=== PATIENT | female | born 1940 | race Caucasian/White ===

== ENCOUNTER 2017-01-15 13:25 | Emergency (ER) | payer MEDICARE ==
[~2017-01-15] VITALS: Ht 162.6 cm; Wt 65.0 kg
[~2017-01-15 13:25] MED LIST: ACCU-CHEK FASTCLIX L XX; ACCU-CHEK SMARTVIEW VI; ATENOLOL50 MG; ATENOLOL50 MG PO; CARAFATE1 G1 OR; COREG12.5 MG PO; DICLOFENAC100 M1 PO; DILTIAZEM120 M2 OR; DURAGESIC25 MCG/PAT TD; EQL ASPIRIN81 MG PO; ERYTHROMYCIN O3.5 GM; FISH OIL1000 MG PO; FLEXERIL OR; GABAPENTIN100 MG PO; GABAPENTIN300 MG OR; GLIME4T; GLIME4T PO; GLIMEPIRIDE2 MG OR; GLIMEPIRIDE4 MG PO; HYDROCHLOROT12.5 MG PO; HYDROCO/APAP1 T10 PO; LANTUS SOLOSTAR SC; LANTUS100 MG/ML; LANTUS100 MG/ML SC; LEVEMIR FL100 UNIT/M SC; LEVEMIR FLEXPEN SC; LISINOP/HCTZ1 TA1 OR; LISINOP/HCTZ1 TAB PO; LISINOPRIL10 MG PO; LOPID600 MG PO; LORTAB 10; LORTAB 10-325 M1 TAB PO; LORTAB 7.57.5 MG PO; MEDDOSEPAK PO; METFORMIN1000 MG; METFORMIN1000 MG PO; MOTRIN800 MG/TAB PO; MUCINEX600 MG PO; MULTI VIT PO; NEXIUM40 M1 OR; OCUVITE PO; PAROXETINE20 MG; PAROXETINE20 MG PO; PERSANTINE25 MG OR; PRILOSEC20 MG PO; PRILOSEC40 MG PO; SIMVASTATIN20 MG PO; TEMAZEPAM15 MG OR; TRICOR145 MG PO; ULTRAM50 MG PO; XANAX0.25 MG OR; ZITHROMAX250 MG PO; [UNRECOGNIZED DRUG - OTHER] XX; [UNRECOGNIZED DRUG - OTHER] XX; [UNRECOGNIZED DRUG - SUPPLY] VI
[2017-01-15] MEDS ORDERED: BACTRIM DS1 TAB PO (14:27)
[2017-01-15] MEDS ORDERED: CEPHALEXIN500 MG PO (14:27)
[2017-01-15 14:35] VITALS: BP 139/74
[2017-01-15] MEDS ORDERED: MELOXICAM15 MG PO (14:42)
[2017-01-15] MEDS ORDERED: TOUJEO SOL300 UNIT/M SC (14:43)
[2017-01-15] MEDS ORDERED: NEURONTIN300 MG PO (14:44)
[2017-01-15] MEDS ORDERED: CARVEDILOL3.125 MG PO (14:45)
[2017-01-15] MEDS ORDERED: ADLT ASA LOW81 MG PO (14:46)
== END 2017-01-15 14:35 | disposition home or self-care (01) ==
LOC: ED 13:25
DX: M79.672 Pain in left foot (principal)

== ENCOUNTER 2017-03-23 15:35 | Emergency (ER) | payer MEDICARE ==
[~2017-03-23] VITALS: Ht 162.6 cm; Wt 65.0 kg
[~2017-03-23 15:35] MED LIST changes: +ADLT ASA LOW81 MG PO; +BACTRIM DS1 TAB PO; +CARVEDILOL3.125 MG PO; +CEPHALEXIN500 MG PO; +MELOXICAM15 MG PO; +NEURONTIN300 MG PO; +TOUJEO SOL300 UNIT/M SC
[2017-03-23 18:33] VITALS: BP 119/65
== END 2017-03-23 18:33 | disposition home or self-care (01) ==
LOC: ED 15:35
PROC: 2W3RX1Z Immobilization of Left Lower Leg using Splint (ICD-10-PCS; principal; 2017-03-23)
DX: S86.011A Strain of right Achilles tendon, initial encounter (principal); M79.605 Pain in left leg; R22.32 Localized swelling, mass and lump, left upper limb

== ENCOUNTER 2017-04-07 11:29 | Day surgery (SDC) | payer MEDICARE ==
[~2017-04-07] VITALS: Ht 162.6 cm; Wt 66.2 kg
[~2017-04-07 11:29] MED LIST changes: +ATORVASTATIN CA40 MG PO; +VITAMIN C + PO
[2017-04-07] MEDS ORDERED: PERCOCET 10/31 COMBO PO (15:51)
[2017-04-07] MEDS ORDERED: KEFLEX500 MG PO (15:51)
[2017-04-07] MEDS ORDERED: ELIQUIS2.5 MG PO (15:51)
[2017-04-07 16:18] VITALS: BP 155/70
== END 2017-04-07 16:50 | disposition home or self-care (01) ==
LOC: ORM 11:29
PROVIDERS: ATTEND Podiatrist Foot & Ankle Surgery
PROC: 0LUP07Z Supplement Left Lower Leg Tendon with Autologous Tissue Substitute, Open Approach (ICD-10-PCS; principal; 2017-04-07)
PROC: 0L8P0ZZ Division of Left Lower Leg Tendon, Open Approach (ICD-10-PCS; 2017-04-07)
PROC: 0QBM0ZZ Excision of Left Tarsal, Open Approach (ICD-10-PCS; 2017-04-07)
DX: M66.372 Spontaneous rupture of flexor tendons, left ankle and foot (principal); M89.9 Disorder of bone, unspecified; M21.6X2 Other acquired deformities of left foot; E11.9 Type 2 diabetes mellitus without complications; I10 Essential (primary) hypertension; I48.91 Unspecified atrial fibrillation; F17.210 Nicotine dependence, cigarettes, uncomplicated
CPT/HCPCS: J2710

== ENCOUNTER 2018-09-14 06:41 | Day surgery (SDC) | payer MEDICARE ==
[~2018-09-14 06:41] MED LIST changes: +AMLODIPINE5 MG PO; +ELIQUIS2.5 MG PO; +FERR SULFATE325 MG PO; +GLIPIZIDE5 MG PO; +KEFLEX500 MG PO; +PERCOCET 10/31 COMBO PO; +VISION FORMULA1 TAB
[2018-09-14 09:50] VITALS: BP 137/71
== END 2018-09-14 10:20 | disposition home or self-care (01) ==
LOC: ENDO 06:41 → ORM 09:15 → ENDO 09:15
PROVIDERS: ATTEND Internal Medicine Gastroenterology
PROC: 0DBH8ZX Excision of Cecum, Via Natural or Artificial Opening Endoscopic, Diagnostic (ICD-10-PCS; principal; 2018-09-14)
PROC: 0DB78ZX Excision of Stomach, Pylorus, Via Natural or Artificial Opening Endoscopic, Diagnostic (ICD-10-PCS; 2018-09-14)
DX: D12.0 Benign neoplasm of cecum (principal); K57.30 Diverticulosis of large intestine without perforation or abscess without bleeding; K64.4 Residual hemorrhoidal skin tags; K21.9 Gastro-esophageal reflux disease without esophagitis; K31.9 Disease of stomach and duodenum, unspecified; K29.50 Unspecified chronic gastritis without bleeding; K44.9 Diaphragmatic hernia without obstruction or gangrene; I10 Essential (primary) hypertension; E11.9 Type 2 diabetes mellitus without complications; Z79.899 Other long term (current) drug therapy; Z79.84 Long term (current) use of oral hypoglycemic drugs

== ENCOUNTER 2018-09-23 15:07 | Observation (INO) | payer MEDICARE ==
[~2018-09-23] VITALS: Ht 157.5 cm; Wt 62.8 kg
--- NOTE | 2018-09-23 15:16 | NUR ---
PATIENT TO ROOM VIA EMS AND PHYSICIAN AT BEDSIDE FOR EVAL
--- NOTE | 2018-09-23 15:42 | NUR ---
PT STATES THAT SHE BECAME REAL WEAK DURING THE NIGHT, BECAME INCONTINENT OF URINE OF BEING UNABLE TO GET OUT OF BED TO THE BATH. PT IS AOX4. HAS FULL MOVEMENT OF ALL EXTREMITIES, DENIES ANY C/P, SOB N/V.
[2018-09-23 15:45] LABS: HEMATOCRIT 31.3 % (37.0-47.0); IMMATURE GRANULOCYTES 0.6 % (0.0-5.0); MEAN CELL VOLUME 84.6 fL CALC (80.0-100.0); MEAN CORPUSCULAR HGB CONC 31.9 g/L CALC (32.0-36.0); PLATELET COUNT 185 thou/uL (130-400); RED CELL DISTRI WIDTH 15.3 % (11.5-15.5)
[2018-09-23 16:01] LABS: ALKALINE PHOSPHATASE 75 u/l (38-126); ANION GAP 16 (6-22 (CALC)); BILIRUBIN, TOTAL 0.6 mg/dL (0.0-1.4); BUN 20 mg/dL (8-23); BUN/CREATININE RATIO 15 (12-20 (CALC)); CARBON DIOXIDE 24 mmol/l (22-30); CHLORIDE 104 mmol/l (95-108); CREATININE 1.4 mg/dL (0.5-1.0); GFR 37 ML/MIN (>=60 (CALC)); GFR FOR AFR.AMER. 44 ML/MIN (>=60 (CALC)); POTASSIUM 4.3 mmol/l (3.5-5.1); SGOT/AST 31 u/l (9-36); SODIUM 141 mmol/l (137-146); TOTAL PROTEIN 6.7 g/dL (6.3-8.2)
[2018-09-23 16:03] LABS: ALBUMIN 3.7 g/dL (3.2-5.0)
[2018-09-23 16:10] LABS: MANUAL DIFFERENTIAL YES
[2018-09-23 16:11] LABS: BAND 15 % (0-8)
--- NOTE | 2018-09-23 16:40 | NUR ---
PT RESTING ON STRETCHER, IV PATENT
[2018-09-23 16:42] LABS: URINE BILIRUBIN - DIPSTICK NEGATIVE (NEGATIVE); URINE BLOOD DIPSTICK MODERATE (NEGATIVE); URINE COLOR YELLOW; URINE GLUCOSE - DIPSTICK NEGATIVE (NEGATIVE); URINE KETONE NEGATIVE (NEGATIVE); URINE PROTEIN - DIPSTICK >=300 mg/dL (NEG-TRACE); URINE SPECIFIC GRAVITY 1.025; URINE UROBILINOGEN - DIPSTICK 0.2 E.U./dL (0.2)
[2018-09-23 16:52] LABS: URINE LEUK ESTERASE SMALL (NEGATIVE); URINE NITRITE - DIPSTICK POSITIVE (Negative)
[2018-09-23 17:02] LABS: URINE BACTERIA MANY hpf; URINE RBC TNTC RBC/hpf (0-5); URINE SQUAMOUS EPITHELIAL CELL FEW EPI/hpf (0-FEW); URINE WBC 20-50 WBC/hpf (0-5)
--- NOTE | 2018-09-23 17:40 | NUR ---
PT ASLEEP ON STRETCHER, VITALS BEING MONITORED.
--- NOTE | 2018-09-23 18:15 | NUR ---
PT WHEEZING AFTER GETTING UP AND BACK TO BED FROM BEDSIDE COMMODE- MD NOTIFIED.
--- NOTE | 2018-09-23 18:25 | NUR ---
RT AT BEDSIDE WITH JESSICA
--- NOTE | 2018-09-23 18:29 | NUR ---
ALISSA CHAVARRIA CALLED FOR REPORT
--- NOTE | 2018-09-23 18:30 | NUR ---
BREATHING TREATMENT GIVEN WITH DUONEB. BREATHING TECH. FOR GOOD DEPOSITON TO THE LUNGS.
--- NOTE | 2018-09-23 18:33 | NUR ---
Admission Note Report Given to: ALISSA CHAVARRIA Transported by: Wheelchair X Stretcher Transported with: X Nurse Transporter X Patent IV O2 X Street Commissioner TRANSPORTED TO [facility] WITHOUT INCIDENT
[2018-09-23 18:45] VITALS: BP 195/93
--- NOTE | 2018-09-23 18:45 | NUR ---
PATIENT ARRIVED TO FLOOR TRANSPORTED VIA BED, PATIENT ORIENTED TO ROOM AND CALL LIGHT SYSTEM, ASSISTED BACK IN BED, CALL LIGHT AT REACH
--- NOTE | 2018-09-23 20:23 | NUR ---
CALLED DR. GÓMEZ IMFORMED ABOUT ALLERGY TO ASPIRIN AND NOTIFIED ABOUT PATIENT VOMITTING 2X, WITH ORDERS MADE.
[2018-09-23 22:38] VITALS: BP 111/77
--- NOTE | 2018-09-24 | NUR ---
PATIENT APPEARS TO BE SLEEPING WITH EYES CLOSED, EVEN UNLABORED BREATHING, CALL LIGHT AT REACH, BED ALARM IN PLACE.
[2018-09-24 03:30] VITALS: BP 151/87
[2018-09-24 04:53] LABS: HEMATOCRIT 32.5 % (37.0-47.0); HEMOGLOBIN 10.1 g/dl (12.0-16.0); IMMATURE GRANULOCYTES 0.4 % (0.0-5.0); MEAN CELL VOLUME 86.9 fL CALC (80.0-100.0); MEAN CORPUSCULAR HGB CONC 31.1 g/L CALC (32.0-36.0); NEUT# 7.04 thou/uL (2.00-7.15); RED BLOOD COUNT 3.74 mill/uL (4.20-5.60); RED CELL DISTRI WIDTH 15.4 % (11.5-15.5)
--- NOTE | 2018-09-24 05:03 | NUR ---
PATIENT STARTED TO HAVE AUDIBLE WHEEZING, BREATHING TREATMENT GIVEN BY RT.
[2018-09-24 05:16] LABS: ALBUMIN 3.3 g/dL (3.2-5.0); BILIRUBIN, TOTAL 0.5 mg/dL (0.0-1.4); CREATININE 1.3 mg/dL (0.5-1.0); POTASSIUM 4.3 mmol/l (3.5-5.1); TOTAL PROTEIN 5.9 g/dL (6.3-8.2)
[2018-09-24 05:17] LABS: CHOLESTEROL HDL RATIO 3.7 (<4.4 (CALC))
--- NOTE | 2018-09-24 05:40 | NUR ---
CALLED DR. GÓMEZ INFORMED ABOUT PATIENT STARTED HAVING WHEEZING AGAIN AND THAT DUONEB WAS GIVEN ONE TIME DOSE AT 0430, WITH ORDERS MADE TO GIVE ANOTHER ONE TIME DOSE OF DUONEB.
[2018-09-24 05:47] VITALS: BP 138/74
--- NOTE | 2018-09-24 07:10 | NUR ---
RECEIVED PT RESTING IN SUPINE POSITION WITH EYES CLOSED. RESP EASY.
--- NOTE | 2018-09-24 07:30 | NUR ---
PT AWAKEN FOR SHIFT ASSESSMENT. PT ALERT AND ORIENTED X3. SEE SHIFT REVIEW FOR COMPLETE ASSESSMENT. PT SL LABORED BREATHING, SAT;S 97% ON ROOM AIR. LEFT LOWER BASE WITH CRACKLES AND RIGHT WITH FAINT EXP WHEEZES. PT DENIES ANY HX OF PAST LUNG DISEASE, REPORTS PAST HX OF SMOKING. PT DENIES ANY DISTRESS. TEMP 101.2, TYLENOL GIVEN ORDERED. WILL CONTINUE TO MONITOR.
--- NOTE | 2018-09-24 07:51 | NUR ---
Preliminary blood cultures, showing 3/4 bottles of gram negative rods, called to Dr Ardon. Dr Ardon, concerned about patient, was expecting a possible positive culture. Pt currently has coverage with Rocephin 1g q24h. Awaiting culture and sensitivity to evaluate antibiotic coverage.
[2018-09-24 08:00] VITALS: BP 155/81
--- NOTE | 2018-09-24 08:12 | NUR ---
DR GÓMEZ AT BEDSIDE. PT QUESTIONING DISCHARGE, STATES SHE NEEDS TO GET HOME TO HER DOG. EXPLAINED PT NEEDS TO BE HERE SHE HAS + BLOOD CULTURES AND FEVERS. PT VOICES UNDERSTANDING. PT ALSO STATES SHE HAD A COLONOSCOPY 1 WEEK AGO AND WAS TOLD SHE HAD A "7 CM MASS", DR GÓMEZ TO FOLLOW UP ON.
--- NOTE | 2018-09-24 10:00 | NUR ---
PT SITTING ON COUCH AT BEDSIDE. AM MEDS GIVEN AND TOLERATED WELL. PT DENIES ANY NEEDS. TEMP DOWN TO 99.3.
--- NOTE | 2018-09-24 11:53 | NUR ---
PT INCONTINENT OF LARGE AMOUNT OF STOOL. REPORTS IS DIARRHEA. MANAGER TEST AT BEDSIDE FOR PERICARE AND LINEN CHANGE.
[2018-09-24 15:45] VITALS: BP 151/94
--- NOTE | 2018-09-24 16:00 | NUR ---
PT WITH ANOTHER EPISODE OF LOOSE STOOLS. PERICARE PROVIDED. TEMP GREATER THAN 102. WILL MEDICATE.
--- NOTE | 2018-09-24 16:57 | NUR ---
PTS TEMP RECHECK STILL 102.0. PT WITH NO COVERS. DENIES ANY COMPLAINTS. NEW IV STARTED X1 ATTEMPT.
--- NOTE | 2018-09-24 18:07 | NUR ---
PTS TEMP DOWN TO 100.0. IV SITE PATENT. DENIES ANY NEEDS.
--- NOTE | 2018-09-24 19:00 | NUR ---
RECEIVED REPORT FROM NURSE RAFA PATIENT RESTING IN BED, DENIES PAIN OR DISCOMFORTS AT THIS TIME, WITH EVEN UNLABORED BREATHING CALL LIGHT AT REACH.
--- NOTE | 2018-09-24 20:00 | NUR ---
PATIENT AWAKE CURRENTLY WATCHING TV, DENIES PAIN OR DISCOMFORT WITH SALINE LOCK ON LEFT HAND PATENT FLUSHES WELL,LBM 09/24, SKIN IS WARM AND DRY, WASH CLOTH PROVIDED, WILL CONTINUE TO MONITOR TEMP.
[2018-09-24 20:02] VITALS: BP 122/71
--- NOTE | 2018-09-25 01:00 | NUR ---
PATIENT APPEARS TO BE SLEEPING WITH EYES CLOSED EVEN UNLABORED BREATHING, AFEBRILE AT THIS TIME, CALL LIGHT AT REACH.
[2018-09-25 04:49] VITALS: BP 130/79
--- NOTE | 2018-09-25 05:13 | NUR ---
PATIENT RESTING IN BED EYES CLOSED WITH EVEN UNLABORED BREATHING CALL LIGHT AT REACH.
[2018-09-25 05:29] LABS: HEMOGLOBIN 8.9 g/dl (12.0-16.0); IMMATURE GRANULOCYTES 0.5 % (0.0-5.0); MEAN CELL VOLUME 86.2 fL CALC (80.0-100.0); MEAN CORPUSCULAR HGB 27.4 pG CALC (26.0-32.0); MEAN CORPUSCULAR HGB CONC 31.8 g/L CALC (32.0-36.0); PLATELET COUNT 136 thou/uL (130-400); RED BLOOD COUNT 3.25 mill/uL (4.20-5.60); RED CELL DISTRI WIDTH 15.1 % (11.5-15.5)
[2018-09-25 05:52] LABS: ALBUMIN 2.8 g/dL (3.2-5.0); BILIRUBIN, TOTAL 0.3 mg/dL (0.0-1.4); CHOLESTEROL HDL RATIO 6.6 (<4.4 (CALC)); CREATININE 1.6 mg/dL (0.5-1.0); POTASSIUM 4.3 mmol/l (3.5-5.1); TOTAL PROTEIN 5.3 g/dL (6.3-8.2)
[2018-09-25 06:56] LABS: BAND 15 % (0-8); MANUAL DIFFERENTIAL YES
--- NOTE | 2018-09-25 07:00 | NUR ---
RECEIVED BEDSIDE REPORT FROM [facility]. PT RESTING ON RIGHT SIDE WITH EYES CLOSED. RESP EASY.
[2018-09-25 08:00] VITALS: BP 144/75
--- NOTE | 2018-09-25 08:15 | NUR ---
ASSESSMENT COMPLETE. PT STATES SHE FEELS BETTER, REQUESTING TO GO HOME THIS AM, STATES SHE WANTS TO GO BE WITH HER DOG. DENIES ANY OTHER NEEDS. SEE SHIFT REVIEW FOR COMPLETE ASSESSMENT.
--- NOTE | 2018-09-25 08:45 | NUR ---
DR GÓMEZ IN TO SEE PT. DISCUSSED PICC LINE PLACEMENT.
--- NOTE | 2018-09-25 09:30 | NUR ---
PT AMBULATING HALLS WITH PHYSICAL THERAPY.
--- NOTE | 2018-09-25 10:15 | NUR ---
PT TO XRAY DEPT FOR PICC LINE PLACEMENT.
--- NOTE | 2018-09-25 11:06 | NUR ---
PT RETURNED FROM XRAY. PT TOLERATED WELL. DENIES PAIN. TEMP 98.7.
[2018-09-25] MEDS ORDERED: ROCEPHIN1 G1 IV (13:29)
--- NOTE | 2018-09-25 14:31 | NUR ---
DISCHARGE INSTUCTIONS DISCUSSED WITH PATIENT AND FRIEND AT BEDSIDE. PT DENIES ANY QUESTIONS REGARDING FOLLOW UP WITH DR GÓMEZ IN ONE WEEK AND DAILY IVT AT 1030.
--- NOTE | 2018-09-25 14:37 | NUR ---
PT LEFT VIA WHEELCHAIR WITH ALL BELONGINGS.
== END 2018-09-25 14:35 | disposition home or self-care (01) ==
LOC: ED 15:07 → ED-I 16:16 → ED 17:14 → MS2 17:15
PROVIDERS: Emergency Medicine; ADMIT Internal Medicine Geriatric Medicine; ATTEND Internal Medicine Geriatric Medicine
PROC: 02HV33Z Insertion of Infusion Device into Superior Vena Cava, Percutaneous Approach (ICD-10-PCS; principal; 2018-09-25)
PROC: B518ZZA Fluoroscopy of Superior Vena Cava, Guidance (ICD-10-PCS; 2018-09-25)
DX: A41.9 Sepsis, unspecified organism (principal); N39.0 Urinary tract infection, site not specified; E87.2 Acidosis; I10 Essential (primary) hypertension; I25.10 Atherosclerotic heart disease of native coronary artery without angina pectoris; E11.69 Type 2 diabetes mellitus with other specified complication; E78.5 Hyperlipidemia, unspecified; E11.42 Type 2 diabetes mellitus with diabetic polyneuropathy; K21.9 Gastro-esophageal reflux disease without esophagitis; K27.9 Peptic ulcer, site unspecified, unspecified as acute or chronic, without hemorrhage or perforation; F41.9 Anxiety disorder, unspecified; M19.90 Unspecified osteoarthritis, unspecified site; B96.1 Klebsiella pneumoniae [K. pneumoniae] as the cause of diseases classified elsewhere; Z79.84 Long term (current) use of oral hypoglycemic drugs
CPT/HCPCS: J0131

== ENCOUNTER 2018-11-14 11:21 | Inpatient (IN) | payer MEDICARE ==
[~2018-11-14] VITALS: Ht 157.5 cm; Wt 62.6 kg
[~2018-11-14 11:21] MED LIST changes: +FERROUS SULF325 M2 PO; +ROCEPHIN1 G1 IV
[2018-11-20] VITALS (9 sets, daily range): BP systolic 122–139; BP diastolic 54–82
--- NOTE | 2018-11-20 15:02 | NUR ---
ASSESSMENT DONE . PT IS A&O X2 BUT DROWSY. PT STATED PAIN IN ABD 08/13. MEDICATED PT WITH DILAUDID SEE EMAR. INCISION ABD HAS DERMADOND AND CDI. IVF INFUSING WELL. ICE CHIPS PROVIDED. SCD IN PLACE. SAFETY PRECAUTIONS REINFORCED AND CALL LIGHT IN REACH.
--- NOTE | 2018-11-20 19:48 | NUR ---
ASSESSMENT COMPLETED. IV SITE PATENT AND ORDERED IVF INFUSING. ICE CHIPS PROVIDED. DENIES NEEDS AT THIS TIME. MIDLINE INCISION WITH DERMABOND INTACT AND SMALL PUNCTURE SITESX2 NOTED TO ABOVE UMBILICUS AND LLQ; ENCOURAGED TO USE INCENTUVE SPIROMETER AND SCD'S ARE IN PLACE TO BLE. INSTRUCTED TO CALL FOR ANY NEEDS. CALL LIGHT IS IN REACH. WILL CONTINUE TO MONITOR.
--- NOTE | 2018-11-20 21:00 | NUR ---
PT. C/O ABDOMINAL PAIN 8/ AND NAUSEA, MEDICATED WITH ORDERED DILAUDID AND ZOFRAN. PT. ASSISTED OOB TO AMBULATE TO BATHROOM , GAIT WAS UNSTEADY. PT. VOIDED 100MLS OF CLEAR YELLOW URINE. PT. WASHED HER FACE AND ORAL CARE PROVIDED. PT. VOMITED 25MLS WHEN BACK TO BED INTO EMESIS BAG. INCENTIVE SPIROMETER AT BEDSIDE ENCOURAGED TO USE.
--- NOTE | 2018-11-20 23:10 | NUR ---
PT. RESTING IN BED ON LEFT SIDE WITH EYES CLOSED; RESP. EVEN AND UNLABORED. CALL LIGHT IS IN REACH.
--- NOTE | 2018-11-21 00:43 | NUR ---
RESTING IN BED ON LEFT SIDE WITH EYES CLOSED. RESP. EVEN AND UNLABORED.
--- NOTE | 2018-11-21 02:02 | NUR ---
RESTING IN BED WITH EYES CLOSED; RESP. EVEN AND UNLABORED; CALL LIGHT IS IN REACH. WILL CONTINUE TO MONITOR.
[2018-11-21 03:52] VITALS: BP 136/86
--- NOTE | 2018-11-21 04:18 | NUR ---
PT. C/O ABD PAIN 12/13 AND MEDICATED WITH ORDERED DILAUDID AND ZOFRAN; WILL REASSESS. FRESH ICE CHIPS PROVIDED. MIDLINE INCISION REMAINS INTACT WITH DERMABOND AND SLIGHT PINKNESS NOTED TO OUTER AREA; NO DRAINAGE NOTED; WILL CONTINUE TO MONITOR. VOICES NO CONCERNS. CALL LIGHT IS IN REACH. WILL CONTINUE TO MONITOR.
[2018-11-21 07:39] VITALS: BP 133/85
--- NOTE | 2018-11-21 07:41 | NUR ---
PT IS SITTING IN THE SIDE OF THE BED. ASSESSMENT DONE. PT IS A&O X3. SCD IN PLACE. I/S ENCOURAGE PT VERBALIZED UNDERSTANDING. PT STATED PAIN IN ABD 11/13 MEDICATED PT WITH DILAUDID SEE EMAR. IVF INFUSING WELL. ICE CHIPS PROVIDED. ABD INCISION CDI. CALL LIGHT IN REACH.
--- NOTE | 2018-11-21 08:34 | NUR ---
DR. GARIBAY AT BEDSIDE DISUCSS POC.
[2018-11-21 11:24] VITALS: BP 116/66
--- NOTE | 2018-11-21 11:38 | NUR ---
PT IS VISITING IN ROOM WITH FRIEND. PT STATED PAIN IN ABD. MEDICATED PT WITH DILAIDID SEE EMAR. PT DENIES ANY OTHER NEEDS AT THIS TIME. CALL LIGHT IN REACH.
--- NOTE | 2018-11-21 15:00 | NUR ---
AMBULATED WITH PT BUT SHE WAS UNSTEADY. GAVE PT A WALKER AND SHE AMBULATED IN THE HALLWAY WITH A SLOW AND STEADY. THEN WENT BACK TO ROOM TO SIT IN RECLINER. ICE CHIPS PROVIDED. CALL LIGHT IN REACH.
[2018-11-21 16:05] VITALS: BP 129/72
[2018-11-21 19:50] VITALS: BP 146/82
--- NOTE | 2018-11-21 20:20 | NUR ---
PT HEARD YELLING OUT FOR ASSISTANCE, WHEN NURSE ENTERED ROOM PT WAS FOUND SITTING UPRIGHT ON THE FLOOR BETWEEN THE BED AND RESTROOM. PT DENIES ANY PAIN, DENIED HITTING HEAD OR FEELING ANY DISCOMFORT FROM FALL. PT ASSISTED BACK TO THE BED AND CLEANED OF INCONTINENT URINE. PT ASSESSED, NEURO'S APPEAR INTACT, PT APPEARS SLIGHTLY CONFUSED, BUT ANSWERED APPROPRIATELY TO CIRCUMSTANCES AND SELF. V/S ASSESSED STABLE. WILL NOTIFY PHYSICIAN FOR ORDERS.
--- NOTE | 2018-11-21 20:45 | NUR ---
ATTEMPTS TO CONTACT PHYSICIAN WERE MADE, WILL AWAIT ORDERS. PT APPEARS STABLE AT THIS TIME. NEURO'S INTACT, INCISION TO ABD CDI, PT DENIES ANY PAIN OTHER THAN MILD PAIN TO LOWER ABD. WILL CONTINUE TO MONITOR.
--- NOTE | 2018-11-21 21:38 | NUR ---
PT MEDICATED ORDERS PROVIDE. PT LOCX4, ASKING QUESTIONS AND ANSWERING APPROPRIATELY. PT REPORTS MINIMAL PAIN IN LOWER ABD, NO PAIN IN ANY OTHER AREAS OF THE BODY AT THIS TIME. NEURO'S INTACT AT THIS TIME. WILL CONTINUE TO MONITOR CLOSELY. BED ALARM ON AND PT REMINDED OF CALL LIGHT AND NOT TO GET UP WITHOUT ASSISTANCE.
[2018-11-22 00:24] VITALS: BP 135/74
--- NOTE | 2018-11-22 00:26 | NUR ---
PT IVF REPLENISHED, PT AWAKE, AIDES IN TAKING V/S AT THIS TIME. NEURO'S INTACT. PT DENIES ANY NEEDS AT THIS TIME. CALL LIGHT AT BEDSIDE AND BED ALARM ON.
--- NOTE | 2018-11-22 03:58 | NUR ---
PT MEDICATED FOR PAIN 4/10 ON PAIN SCALE. PT JUST AMBULATED TO RESTROOM AND BACK TO BED USING WALKER AND STANDBY ASSISTANCE. PT IS SLIGHTLY UNSTEADY WHEN WALKING, BUT DOES NOT SEEM TO HAVE PROBLEMS HOLDING WEIGHT. PT LOCX4 AT THIS TIME. NEURO'S INTACT.
[2018-11-22 04:31] VITALS: BP 152/76
[2018-11-22 05:24] LABS: HEMATOCRIT 29.7 % (37.0-47.0); HEMOGLOBIN 9.4 g/dl (12.0-16.0); MEAN CELL VOLUME 88.9 fL CALC (80.0-100.0); MEAN CORPUSCULAR HGB 28.1 pG CALC (26.0-32.0); MEAN CORPUSCULAR HGB CONC 31.6 g/L CALC (32.0-36.0); RED BLOOD COUNT 3.34 mill/uL (4.20-5.60); RED CELL DISTRI WIDTH 15.9 % (11.5-15.5)
[2018-11-22 05:45] LABS: CREATININE 1.3 mg/dL (0.5-1.0); POTASSIUM 4.4 mmol/l (3.5-5.1)
[2018-11-22 07:40] VITALS: BP 126/59
--- NOTE | 2018-11-22 07:50 | NUR ---
REPORT RECEIVED FROM DEON CLIFFORD. PT SUPINE IN BED. DENIES PAIN. REPORTING OF CONCERNS ENCOURAGED. FALL PRECAUTIONS REINFORCED. CALL LIGHT REVIEWED AND IN REACH. BED ALARM SET FOR SAFETY. PT FORGETFUL, INQUIRES MULTIPLE TIMES ABOUT DAY AND TIME. PT RE-ORIENTED TO TIME. ALERT. ORIENTED TO PERSON, PLACE AND SITUATION. LUNGS CLEAR. 91 % ON RA. IS USE ENCORUAGED. BOWEL SOUNDS NOT HEARD, PT REPORTS PASSING GAS. AMBULATED TO RESTROOM, STEADY GAIT. NEEDS DIRECTION FOR WALKER USE AND ASSIST WITH EQUIPMENT. INCISION TO ABD. X 3. DERMABOND INTACT. NO REDNESS/SWELLING/DRAINAGE. #20 LAC INFUSING IVF W/O DIFFICULTY.
--- NOTE | 2018-11-22 08:45 | NUR ---
DR. GARIBAY IN TO SEE PT. PLAN OF CARE UPDATED. DIET ADVANCED, IVF D/C'D, PAIN MEDICATION CHANGED TO PERCOCET. PT STATES UNDERSTANDING.
--- NOTE | 2018-11-22 12:45 | NUR ---
FULL LIQUID LUNCH STARTED. PT REPORTS TOLERATING WELL.
[2018-11-22 14:55] VITALS: BP 125/70
--- NOTE | 2018-11-22 16:00 | NUR ---
PT. ASSISTED TO RESTROOM. STEADY GAIT. INSTRUCTED TO SPLINT ABDOMIN WITH PILLOW W/ CHANGE IN POSITIONS. PT TOLERATED ACTIVITY WELL.
--- NOTE | 2018-11-22 19:05 | NUR ---
BEDSIDE REPORT RECEIVED FROM DAY NURSE. PT LAYING ON SIDE OF THE BED W/FEET OFF THE BED. PT REPORTS EATING "FINALLY" AND TOLERATING WELL. DENIES PAIN AT THIS TIME. WILL FOLLOW-UP W/ASSESSMENT AND CONTINUE TO MONITOR. PT REMINDED OF CALL LIGHT AND CONFIRMED THAT PT KNEW ITS LOCATION AT HER SIDE. PT VOICED UNDERSTANDING. PT HAS NOT BEEN ON BED ALARM THROUGHOUT THE DAY.
[2018-11-22 19:36] VITALS: BP 131/78
--- NOTE | 2018-11-22 19:38 | NUR ---
AIDE IS IN W/PT OBTAINING V/S. PT PLACED ON BED ALARM FOR SAFETY PRECAUTIONS FOR FORGETFULLNESS.
--- NOTE | 2018-11-22 20:09 | NUR ---
PT MEDICATED ORDERS PROVIDE. ASSESSMENT COMPLETED AT THIS TIME. ABD INCISION CDI MIDLINE AND LAPX2. ABD DIST/TENDER W/ACTIVE BOWEL SOUNDS. PT REPORTS HAVING LARGE LOOSE STOOL EARLIER THIS DAY. PT REMINDED TO CALL IF SHE NEEDS TO GET UP OR OTHER ASSISTANCE AND BED ALARM ON.
--- NOTE | 2018-11-22 22:20 | NUR ---
PT CALLED USING CALL LIGHT ASKING TO AMBULATE TO RESTROOM. PT AMBULATED USING WALKER W/STANDBY ASSISTANCE AND BACK TO BED. PT DENIES ANY OTHER NEEDS AT THIS TIME. CALL LIGHT PLACED AT PT SIDE AND BED ALARM ON.
[2018-11-22 23:28] VITALS: BP 114/66
--- NOTE | 2018-11-23 01:05 | NUR ---
PT SOUNDED BED ALARM ATTEMPTING TO GET UP TO USE RESTROOM. DID NOT USE CALL LIGHT. ASSISTED PT TO RESTROOM AND BACK TO BED. NO S/O DISTRESS AT THIS TIME.
--- NOTE | 2018-11-23 02:25 | NUR ---
BED ALARM SOUNDED, PT WAS ATTEMPTING TO GET UP TO USE RESTROOM, DID NOT CALL FOR ASSISTANCE. PT ASSISTED BY AIDES X2 AND REMINDID OF USE OF CALL LIGHT NEED FOR SAFETY. AIDES REPORT BED ALARM SET PRIOR TO LEAVING ROOM.
--- NOTE | 2018-11-23 02:50 | NUR ---
BED ALARM SOUNDED, PT WAS JUST MOVING IN BED. NO S/O DISTRESS.
--- NOTE | 2018-11-23 03:08 | NUR ---
PT SOUNDED BED ALARM, PT WAS SITTING ON SIDE OF THE BED ATTEMPTING TO GET UP TO USE RESTROOM. PT REMINDED OF CALL LIGHT. PT ASSISTED/AIDES IN W/PT.
[2018-11-23 04:41] VITALS: BP 142/82
--- NOTE | 2018-11-23 07:00 | NUR ---
SHIFT CHANGE REPORT, PT SLEEPING IN SUPINE POSITION AT THIS TIME, BREATHING EVEN AND NON-ALBORED, NO SIGN DISCOMFORT, CALL SIDDIQUI IN REACH AND ALARM ON.
[2018-11-23 09:51] VITALS: BP 153/79
[2018-11-23 09:56] VITALS: BP 153/79
--- NOTE | 2018-11-23 10:00 | NUR ---
AWAKE AND ALERT SITTING UP ON SIDE OF BED, INFORMED/EDUCATED ON FALL RISKS AND ADVISED TO CALL FOR ASSIST FOR ALL OOB ACTIVITIES, STATED UNDERSTANDING, WILL CONTINUE TO MONITOR.
--- NOTE | 2018-11-23 12:32 | NUR ---
SITTING UP ON SIDE OF BED WITH LEGS HANGING OFF, DENIES PAIN, HAVING MEAL, FRIEND VISITING AT THIS TIME.
[2018-11-23] MEDS ORDERED: PERCOCET 5/325M1 TAB PO (12:48)
== END 2018-11-23 14:24 | disposition home health service (06) | DRG 331 ==
LOC: MS2 11-20 10:07
PROVIDERS: ADMIT Surgery; ATTEND Surgery
PROC: 0DTF0ZZ Resection of Right Large Intestine, Open Approach (ICD-10-PCS; principal; 2018-11-20)
DX: D12.0 Benign neoplasm of cecum (principal); I10 Essential (primary) hypertension; E11.9 Type 2 diabetes mellitus without complications; Z79.84 Long term (current) use of oral hypoglycemic drugs
CPT/HCPCS: J0131; J1100; J2710

== ENCOUNTER 2018-11-23 18:51 | Emergency (ER) | payer MEDICARE ==
[~2018-11-23] VITALS: Ht 157.5 cm; Wt 61.0 kg
[~2018-11-23 18:51] MED LIST changes: +PERCOCET 5/325M1 TAB PO
[2018-11-23 19:49] LABS: URINE BLOOD DIPSTICK NEGATIVE (NEGATIVE); URINE COLOR YELLOW; URINE GLUCOSE - DIPSTICK 100 mg/dL (NEGATIVE); URINE KETONE TRACE mg/dL (NEGATIVE); URINE LEUK ESTERASE NEGATIVE (NEGATIVE); URINE NITRITE - DIPSTICK NEGATIVE (Negative); URINE PH 5.5 (4.5-8.0); URINE PROTEIN - DIPSTICK 100 mg/dL (NEG-TRACE); URINE SPECIFIC GRAVITY >=1.030
[2018-11-23 19:51] LABS: URINE BILIRUBIN - DIPSTICK SMALL (NEGATIVE)
[2018-11-23 20:30] LABS: URINE SQUAMOUS EPITHELIAL CELL FEW EPI/hpf (0-FEW)
[2018-11-23 21:00] VITALS: BP 142/72
== END 2018-11-23 19:45 | disposition home or self-care (01) ==
LOC: ED 18:51
DX: R32 Unspecified urinary incontinence (principal); I10 Essential (primary) hypertension; E11.40 Type 2 diabetes mellitus with diabetic neuropathy, unspecified; I25.10 Atherosclerotic heart disease of native coronary artery without angina pectoris; Z79.84 Long term (current) use of oral hypoglycemic drugs; Z98.890 Other specified postprocedural states

== ENCOUNTER 2018-11-27 12:38 | Inpatient (IN) | payer MEDICARE ==
[~2018-11-27] VITALS: Ht 157.5 cm; Wt 62.5 kg
[2018-11-27 13:33] LABS: HEMATOCRIT 29.1 % (37.0-47.0); HEMOGLOBIN 9.3 g/dl (12.0-16.0); MEAN CELL VOLUME 87.1 fL CALC (80.0-100.0); MEAN CORPUSCULAR HGB 27.8 pG CALC (26.0-32.0); NEUT# 9.1 thou/uL (2.00-7.15); RED BLOOD COUNT 3.34 mill/uL (4.20-5.60); RED CELL DISTRI WIDTH 14.8 % (11.5-15.5)
[2018-11-27 13:34] LABS: ALBUMIN 3.1 g/dL (3.2-5.0); BILIRUBIN, TOTAL 0.6 mg/dL (0.0-1.4); CREATININE 1.1 mg/dL (0.5-1.0); POTASSIUM 3.9 mmol/l (3.5-5.1); TOTAL PROTEIN 6.1 g/dL (6.3-8.2)
[2018-11-27 14:56] LABS: URINE BILIRUBIN - DIPSTICK NEGATIVE (NEGATIVE); URINE BLOOD DIPSTICK MODERATE (NEGATIVE); URINE COLOR YELLOW; URINE GLUCOSE - DIPSTICK NEGATIVE (NEGATIVE); URINE KETONE TRACE mg/dL (NEGATIVE); URINE LEUK ESTERASE NEGATIVE (NEGATIVE); URINE NITRITE - DIPSTICK NEGATIVE (Negative); URINE PROTEIN - DIPSTICK 100 mg/dL (NEG-TRACE); URINE SPECIFIC GRAVITY 1.025; URINE UROBILINOGEN - DIPSTICK 0.2 E.U./dL (0.2)
[2018-11-27 15:18] LABS: URINE RBC TNTC RBC/hpf (0-5); URINE SQUAMOUS EPITHELIAL CELL FEW EPI/hpf (0-FEW)
[2018-11-27 15:54] LABS: C. DIFFICILE TOXIN A&B NEGATIVE (NEGATIVE)
[2018-11-27 16:13] VITALS: BP 158/84
[2018-11-27 20:34] VITALS: BP 158/78
[2018-11-27 23:44] VITALS: BP 173/94
[2018-11-28] VITALS: BP 156/82
[2018-11-28 05:36] LABS: HEMATOCRIT 30.2 % (37.0-47.0); HEMOGLOBIN 9.7 g/dl (12.0-16.0); IMMATURE GRANULOCYTES 1.2 % (0.0-5.0); MEAN CELL VOLUME 86.5 fL CALC (80.0-100.0); MEAN CORPUSCULAR HGB 27.8 pG CALC (26.0-32.0); MEAN CORPUSCULAR HGB CONC 32.1 g/L CALC (32.0-36.0); NEUT# 8.1 thou/uL (2.00-7.15); RED BLOOD COUNT 3.49 mill/uL (4.20-5.60); RED CELL DISTRI WIDTH 14.7 % (11.5-15.5)
[2018-11-28 05:51] LABS: ALBUMIN 2.8 g/dL (3.2-5.0); ALKALINE PHOSPHATASE 89 u/l (38-126); ANION GAP 16 (6-22 (CALC)); BILIRUBIN, TOTAL 0.4 mg/dL (0.0-1.4); BUN 12 mg/dL (8-23); BUN/CREATININE RATIO 13 (12-20 (CALC)); CARBON DIOXIDE 23 mmol/l (22-30); CHLORIDE 104 mmol/l (95-108); GFR 54 ML/MIN (>=60 (CALC)); GFR FOR AFR.AMER. > 60 ML/MIN (>=60 (CALC)); POTASSIUM 3.7 mmol/l (3.5-5.1); SGOT/AST 36 u/l (9-36); SODIUM 139 mmol/l (137-146); TOTAL PROTEIN 5.6 g/dL (6.3-8.2)
[2018-11-28 09:05] VITALS: BP 163/81
[2018-11-28 11:18] VITALS: BP 154/93
[2018-11-28 18:59] VITALS: BP 146/78
[2018-11-28 20:01] VITALS: BP 153/84
[2018-11-28 22:46] VITALS: BP 109/68
[2018-11-29] VITALS (7 sets, daily range): BP systolic 112–162; BP diastolic 59–81
[2018-11-29 05:14] LABS: HEMATOCRIT 28.7 % (37.0-47.0); HEMOGLOBIN 9.4 g/dl (12.0-16.0); IMMATURE GRANULOCYTES 1.8 % (0.0-5.0); MEAN CELL VOLUME 84.4 fL CALC (80.0-100.0); MEAN CORPUSCULAR HGB 27.6 pG CALC (26.0-32.0); MEAN CORPUSCULAR HGB CONC 32.8 g/L CALC (32.0-36.0); NEUT# 7.56 thou/uL (2.00-7.15); RED BLOOD COUNT 3.4 mill/uL (4.20-5.60); RED CELL DISTRI WIDTH 14.5 % (11.5-15.5)
[2018-11-29 05:26] LABS: ALBUMIN 2.7 g/dL (3.2-5.0); ALKALINE PHOSPHATASE 88 u/l (38-126); ANION GAP 14 (6-22 (CALC)); BILIRUBIN, TOTAL 0.4 mg/dL (0.0-1.4); BUN 10 mg/dL (8-23); BUN/CREATININE RATIO 11 (12-20 (CALC)); CARBON DIOXIDE 23 mmol/l (22-30); CHLORIDE 106 mmol/l (95-108); CREATININE 0.9 mg/dL (0.5-1.0); GFR > 60 ML/MIN (>=60 (CALC)); GFR FOR AFR.AMER. > 60 ML/MIN (>=60 (CALC)); POTASSIUM 3.4 mmol/l (3.5-5.1); SGOT/AST 43 u/l (9-36); SODIUM 139 mmol/l (137-146); TOTAL PROTEIN 5.5 g/dL (6.3-8.2)
[2018-11-30 00:13] VITALS: BP 149/75
[2018-11-30 04:50] VITALS: BP 140/79
[2018-11-30 05:36] LABS: HEMATOCRIT 29.8 % (37.0-47.0); HEMOGLOBIN 9.6 g/dl (12.0-16.0); IMMATURE GRANULOCYTES 1.8 % (0.0-5.0); MEAN CELL VOLUME 85.6 fL CALC (80.0-100.0); MEAN CORPUSCULAR HGB 27.6 pG CALC (26.0-32.0); MEAN CORPUSCULAR HGB CONC 32.2 g/L CALC (32.0-36.0); NEUT# 8.35 thou/uL (2.00-7.15); RED BLOOD COUNT 3.48 mill/uL (4.20-5.60); RED CELL DISTRI WIDTH 14.6 % (11.5-15.5)
[2018-11-30 05:43] LABS: ALBUMIN 2.5 g/dL (3.2-5.0); CREATININE 1.1 mg/dL (0.5-1.0); POTASSIUM 3.6 mmol/l (3.5-5.1); TOTAL PROTEIN 5.2 g/dL (6.3-8.2)
[2018-11-30 05:53] LABS: BILIRUBIN, TOTAL 0.2 mg/dL (0.0-1.4)
[2018-11-30 07:50] VITALS: BP 175/80
[2018-11-30 11:14] VITALS: BP 141/72
[2018-11-30] MEDS ORDERED: OXYCOD-APAP1 TA1 PO (11:52)
[2018-11-30] MEDS ORDERED: METOPROL TAR25 MG PO (11:53)
[2018-11-30] MEDS ORDERED: DIGOXIN0.125 MG PO (11:53)
== END 2018-11-30 15:07 | DRG 872 ==
LOC: ED 12:38 → ED-I 14:43 → ED 15:15 → MS2 15:16 → ED 15:16 → MS2 16:01
PROVIDERS: Emergency Medicine; ADMIT Internal Medicine Geriatric Medicine; ATTEND Internal Medicine Geriatric Medicine
DX: A41.9 Sepsis, unspecified organism (principal); N39.0 Urinary tract infection, site not specified; S00.12XA Contusion of left eyelid and periocular area, initial encounter; I10 Essential (primary) hypertension; I48.0 Paroxysmal atrial fibrillation; I25.10 Atherosclerotic heart disease of native coronary artery without angina pectoris; K27.9 Peptic ulcer, site unspecified, unspecified as acute or chronic, without hemorrhage or perforation; K21.9 Gastro-esophageal reflux disease without esophagitis; E11.69 Type 2 diabetes mellitus with other specified complication; E78.5 Hyperlipidemia, unspecified; M19.90 Unspecified osteoarthritis, unspecified site; E11.40 Type 2 diabetes mellitus with diabetic neuropathy, unspecified; W19.XXXA Unspecified fall, initial encounter; Y92.009 Unspecified place in unspecified non-institutional (private) residence as the place of occurrence of the external cause; Z79.84 Long term (current) use of oral hypoglycemic drugs; Z90.49 Acquired absence of other specified parts of digestive tract; Z86.010 Personal history of colon polyps
CPT/HCPCS: J1160

== ENCOUNTER 2021-04-04 10:45 | Emergency (ER) | payer MEDICARE ==
[~2021-04-04] VITALS: Ht 157.5 cm; Wt 65.0 kg
[~2021-04-04 10:45] MED LIST changes: +DIGOXIN0.125 MG PO; +METOPROL TAR25 MG PO; +OXYCOD-APAP1 TA1 PO
[2021-04-04 11:49] LABS: IMMATURE GRANULOCYTES 0.2 % (0.0-5.0); MEAN CELL VOLUME 90.1 fL CALC (80.0-100.0); MEAN CORPUSCULAR HGB 28.6 pG CALC (26.0-32.0); MEAN CORPUSCULAR HGB CONC 31.8 g/dL CAL (32.0-36.0); NEUT# 7.73 thou/uL (2.00-7.15); RED BLOOD COUNT 4.54 mill/uL (4.20-5.60); RED CELL DISTRI WIDTH 13.4 % (11.5-15.5)
[2021-04-04 11:50] LABS: HEMATOCRIT 40.9 % (37.0-47.0); URINE BILIRUBIN - DIPSTICK NEGATIVE (NEGATIVE); URINE BLOOD DIPSTICK NEGATIVE (NEGATIVE); URINE COLOR YELLOW; URINE GLUCOSE - DIPSTICK NEGATIVE (NEGATIVE); URINE KETONE NEGATIVE (NEGATIVE); URINE LEUK ESTERASE NEGATIVE (NEGATIVE); URINE PROTEIN - DIPSTICK 100 mg/dL (NEG-TRACE); URINE SPECIFIC GRAVITY >=1.030; URINE UROBILINOGEN - DIPSTICK 0.2 E.U./dL (0.2)
[2021-04-04 11:55] LABS: URINE NITRITE - DIPSTICK NEGATIVE (Negative)
[2021-04-04 12:01] LABS: URINE RBC 0-2 RBC/hpf (0-5); URINE SQUAMOUS EPITHELIAL CELL FEW EPI/hpf (0-FEW); URINE WBC 0-2 WBC/hpf (0-5)
[2021-04-04 12:07] LABS: ALKALINE PHOSPHATASE 51 u/l (38-126); CHLORIDE 100 mmol/l (95-108); LIPASE 395 u/l (23-300); POTASSIUM 3.8 mmol/l (3.5-5.1); SGOT/AST 35 u/l (9-36); SODIUM 139 mmol/l (137-146)
[2021-04-04 12:09] LABS: ALBUMIN 4.6 g/dL (3.2-5.0); ANION GAP 15 (6-22 (CALC)); BILIRUBIN, TOTAL 0.7 mg/dL (0.0-1.4); BUN 42 mg/dL (8-23); BUN/CREATININE RATIO 14 (12-20 (CALC)); CARBON DIOXIDE 28 mmol/l (22-30); CREATININE 3.1 mg/dL (0.5-1.0); GFR 15 ML/MIN (>=60 (CALC)); GFR FOR AFR.AMER. 18 ML/MIN (>=60 (CALC)); TOTAL PROTEIN 7.8 g/dL (6.3-8.2)
[2021-04-04] MEDS ORDERED: HYDROCO/APAP1 TA9 PO (15:02)
[2021-04-04] MEDS ORDERED: TAMSULOSIN0.4 MG PO (15:02)
[2021-04-04 15:30] VITALS: BP 186/84
== END 2021-04-04 15:30 | disposition left against medical advice (07) ==
LOC: ED 10:45 → ED-I 14:00 → ED 15:30
PROVIDERS: Family Medicine
DX: N13.2 Hydronephrosis with renal and ureteral calculous obstruction (principal); N17.9 Acute kidney failure, unspecified; I12.9 Hypertensive chronic kidney disease with stage 1 through stage 4 chronic kidney disease, or unspecified chronic kidney disease; E11.22 Type 2 diabetes mellitus with diabetic chronic kidney disease; N18.9 Chronic kidney disease, unspecified; E11.40 Type 2 diabetes mellitus with diabetic neuropathy, unspecified; I25.10 Atherosclerotic heart disease of native coronary artery without angina pectoris; E78.5 Hyperlipidemia, unspecified; K44.9 Diaphragmatic hernia without obstruction or gangrene; Z79.84 Long term (current) use of oral hypoglycemic drugs; Z90.49 Acquired absence of other specified parts of digestive tract; Z91.19 Patient's noncompliance with other medical treatment and regimen

== ENCOUNTER 2021-04-11 17:08 | Observation (INO) | payer MEDICARE ==
[~2021-04-11] VITALS: Ht 157.5 cm; Wt 70.0 kg
[~2021-04-11 17:08] MED LIST changes: +HYDROCO/APAP1 TA9 PO; +TAMSULOSIN0.4 MG PO
--- NOTE | 2021-04-11 17:25 | NUR ---
PT TO ROOM VIA WC ABLE TO STAND AND TRANSFER SELF TO STRETCHER AFTER USING BR AND PROVIDING URINE SPECIMEN
[2021-04-11 18:46] LABS: URINE BILIRUBIN - DIPSTICK NEGATIVE (NEGATIVE); URINE BLOOD DIPSTICK TRACE-INTACT (NEGATIVE); URINE COLOR YELLOW; URINE GLUCOSE - DIPSTICK 100 mg/dL (NEGATIVE); URINE KETONE NEGATIVE (NEGATIVE); URINE LEUK ESTERASE SMALL (NEGATIVE); URINE NITRITE - DIPSTICK NEGATIVE (Negative); URINE PROTEIN - DIPSTICK 100 mg/dL (NEG-TRACE); URINE SPECIFIC GRAVITY 1.025; URINE UROBILINOGEN - DIPSTICK 0.2 E.U./dL (0.2)
[2021-04-11 18:50] LABS: URINE RBC 0-2 RBC/hpf (0-5); URINE SQUAMOUS EPITHELIAL CELL FEW EPI/hpf (0-FEW)
--- NOTE | 2021-04-11 19:00 | NUR ---
PT ADVISED OF WAIT TIME. VOICED UNDERSTANDING. REPOSITIONS SELF. VSS
[2021-04-11 19:05] LABS: HEMATOCRIT 30.9 % (37.0-47.0); HEMOGLOBIN 9.8 g/dl (12.0-16.0); IMMATURE GRANULOCYTES 0.1 % (0.0-5.0); MEAN CELL VOLUME 90.6 fL CALC (80.0-100.0); MEAN CORPUSCULAR HGB 28.7 pG CALC (26.0-32.0); MEAN CORPUSCULAR HGB CONC 31.7 g/dL CAL (32.0-36.0); NEUT# 5.21 thou/uL (2.00-7.15); RED BLOOD COUNT 3.41 mill/uL (4.20-5.60); RED CELL DISTRI WIDTH 12.6 % (11.5-15.5)
[2021-04-11 19:17] LABS: ALBUMIN 3.8 g/dL (3.2-5.0); ALKALINE PHOSPHATASE 59 u/l (38-126); BILIRUBIN, TOTAL 0.5 mg/dL (0.0-1.4); BUN 36 mg/dL (8-23); BUN/CREATININE RATIO 12 (12-20 (CALC)); CHLORIDE 106 mmol/l (95-108); GFR 15 ML/MIN (>=60 (CALC)); GFR FOR AFR.AMER. 18 ML/MIN (>=60 (CALC)); LIPASE 648 u/l (23-300); POTASSIUM 4.5 mmol/l (3.5-5.1); SGOT/AST 34 u/l (9-36); SODIUM 138 mmol/l (137-146); TOTAL PROTEIN 7.1 g/dL (6.3-8.2)
[2021-04-11 19:18] LABS: ANION GAP 15 (6-22 (CALC)); CARBON DIOXIDE 22 mmol/l (22-30)
--- NOTE | 2021-04-11 19:42 | NUR ---
PT AMBULATED ABOUT ROOM NO APPARENT DISTRESS. SKIN WARM AND DRY. VSS. IV SITE HEALTHY. USES BSC WIHOUT ASSIST.
--- NOTE | 2021-04-11 22:14 | NUR ---
REPORT PROVIDED TO DENO GUERRERO
[2021-04-11] MEDS ORDERED: CARVEDILOL3.125 MG PO (22:18)
[2021-04-11] MEDS ORDERED: TRULICITY0.75 MG/0. SC (22:18)
--- NOTE | 2021-04-11 22:30 | NUR ---
PT RESTING. NAD. UP TO BEDSIDE. ADVISED OF WAIT. PLAN FOR ADMISSION.
--- NOTE | 2021-04-11 23:08 | NUR ---
REPORT RECEIVED FROM Britton RAMIREZ RN
--- NOTE | 2021-04-11 23:14 | NUR ---
REPORT TO BRODY/NURSE
--- NOTE | 2021-04-11 23:50 | NUR ---
TO FLOOR VIA W/C AFTER DOING VALUABLE CHECK LIST.
--- NOTE | 2021-04-11 23:51 | NUR ---
PATIENT ARRIVED ON FLOOR VIA STRETCHER ACCOMPANIED BY Britton RAMIREZ RN.
[2021-04-12] VITALS (7 sets, daily range): BP systolic 137–201; BP diastolic 65–97
--- NOTE | 2021-04-12 00:25 | NUR ---
LABETOLOL ADMINISTERED PER EMAR, PT BLOOD PRESSURE CURRENTLY 192/90. WILL REASSESS NEEDED.
--- NOTE | 2021-04-12 04:42 | NUR ---
PATIENT RESTING COMOFRTABLY, NO APPARENT NEEDS AT THIS TIME, CALL LIGHT AND BEDSIDE TABLE WITHIN REACH,
[2021-04-12 05:41] LABS: HEMATOCRIT 28.3 % (37.0-47.0); HEMOGLOBIN 8.9 g/dl (12.0-16.0); MEAN CELL VOLUME 90.1 fL CALC (80.0-100.0); MEAN CORPUSCULAR HGB 28.3 pG CALC (26.0-32.0); MEAN CORPUSCULAR HGB CONC 31.4 g/dL CAL (32.0-36.0); RED BLOOD COUNT 3.14 mill/uL (4.20-5.60); RED CELL DISTRI WIDTH 12.7 % (11.5-15.5)
[2021-04-12 05:57] LABS: CREATININE 3.1 mg/dL (0.5-1.0); MAGNESIUM 1.8 mg/dL (1.6-2.3); POTASSIUM 4.2 mmol/l (3.5-5.1)
--- NOTE | 2021-04-12 08:30 | NUR ---
PT IN BED WATCHING TV. EVEN AN UNLABORED RESPIRATIONS UPON AUSCULTATION. ACTIVE BOWEL SOUNDS X4 QUADRANTS; DISTENDED, SOFT ABDOMEN. IV SITE HEALTHY AND PATENT. NO DISTRESS NOTED. PT DENIES PAIN AT THE MOMENT. SAFETY PRECAUTIONS IN PLACE. CALL LIGHT WITHIN REACH.
--- NOTE | 2021-04-12 10:33 | NUR ---
AND BEBO ANRP AT BEDSIDE DISCUSSING POC.
--- NOTE | 2021-04-12 10:53 | NUR ---
CALLED DR ELLISON OFFICE AT [phone] SPOKE TO SAMUEL GARCIA PT INFORMATION SHE STATED SHE WILL LET THE DOCTOR KNOW.
[2021-04-12] MEDS ORDERED: TRESIBA FL200 UNIT/M SC (11:43)
[2021-04-12] MEDS ORDERED: ROSUVASTATIN CA10 MG PO (11:44)
--- NOTE | 2021-04-12 11:44 | NUR ---
AT BEDSIDE DISCUSSING POC.
[2021-04-12] MEDS ORDERED: IBUPROFEN600 MG PO (11:46)
[2021-04-12] MEDS ORDERED: MEDROL DOSEPAK4 MG PO (11:47)
--- NOTE | 2021-04-12 11:52 | NUR ---
Called patients friend Concha and she was able to bring patients medications to the hospital. Medication reconciliation was done from patients medication prescription bottles.
--- NOTE | 2021-04-12 12:30 | NUR ---
PT SITTING IN BED. NO DISTRESS NOTED. PT DENIES PAIN AT THE MOMENT. SAFETY PRECAUTIONS IN PLACE. CALL LIGHT WITHIN REACH.
--- NOTE | 2021-04-12 13:00 | NUR ---
BP RE-CHECK 170/73 HR 80.
--- NOTE | 2021-04-12 13:37 | NUR ---
PT MEDICATED WITH PRN TYLENOL 650MG PO AT THIS TIME FOR HIP PAIN RATING 8/10 ON THE PAIN SCALE,WILL CONTINUE TO MONITOR FOR EFFECTIVENESS
--- NOTE | 2021-04-12 14:50 | NUR ---
PT REPORTS PRN TYLENOL UNEFFECTIVE TOWARDS HIP PAIN, PT OFFERED PRN MORPHINE IVP PER ORDER BUT DENIES THE NEED AT THIS TIME;CALL LIGHT IN REACH;WILL CONTINUE TO MONITOR
--- NOTE | 2021-04-12 15:08 | NUR ---
PT IN RESTROOM. NO DISTRESS NOTED. NEW IV SITE STARTED #22G ON RIGHT AC; IV HEALTHY AND PATENT. PT TOLERATED PROCEDURE. CALL LIGHT WITHIN REACH.
--- NOTE | 2021-04-12 16:35 | NUR ---
PT SITTING IN BED WATCHING TV. NO DISTRESS NOTED. PT DENIES PAIN AT THE MOMENT. SAFETY PRECAUTIONS IN PLACE. CALL LIGHT WITHIN REACH.
--- NOTE | 2021-04-12 20:30 | NUR ---
MEDICATIONS ADMINSITERED PER EMAR, ASSEMENT COMPLETED.
[2021-04-13] VITALS (10 sets, daily range): BP systolic 151–193; BP diastolic 52–96
--- NOTE | 2021-04-13 | NUR ---
PT REMINIDED SHE IS TO BE NPO
--- NOTE | 2021-04-13 04:00 | NUR ---
LAB IN TO DRAW BLOOD AT THIS TIME. NO APPRENT NEEDS. CALL LIGHT WITHIN REACH.
[2021-04-13 06:11] LABS: HEMATOCRIT 29.7 % (37.0-47.0); HEMOGLOBIN 9.5 g/dl (12.0-16.0); MEAN CELL VOLUME 88.4 fL CALC (80.0-100.0); MEAN CORPUSCULAR HGB 28.3 pG CALC (26.0-32.0); RED BLOOD COUNT 3.36 mill/uL (4.20-5.60); RED CELL DISTRI WIDTH 12.6 % (11.5-15.5)
[2021-04-13 06:39] LABS: ALBUMIN 3.3 g/dL (3.2-5.0); CREATININE 3.4 mg/dL (0.5-1.0); POTASSIUM 4.6 mmol/l (3.5-5.1)
[2021-04-13 06:41] LABS: CREATININE 3.5 mg/dL (0.5-1.0); POTASSIUM 4.7 mmol/l (3.5-5.1)
--- NOTE | 2021-04-13 08:00 | NUR ---
PT SITTING IN BED. NO DISTRESS NOTED. EVEN AND UNLABORED RESPIRTATIONS; CLEAR LUNG SOUNDS UPON AUSCULTATION. PT DENIES PAIN AT THE MOMENT. ACTIVE BOWEL SOUNDS X4 QUADRANTS. IV DISLOGED; WILL PLACE NEW IV. SAFETY PRECAUTIONS INPLACE. CALL LIGHT WITHIN REACH.
--- NOTE | 2021-04-13 10:30 | NUR ---
PT SITTIN IN BED. NEW IV PLACED #22G ON RIGHT HAND. PT TOLERATED WELL. SAFETY PRECAUTIONS IN PLACE. CALL LIGHT WITHIN REACH.
--- NOTE | 2021-04-13 11:50 | NUR ---
ANXIOUS AND CRYING AT THIS TIME STATING SHE'S BEEN HERE SINCE MONDAY AND HER PROCEDURE HAS BEEN CANCELLED OR DELAYED AND SHE IS GOING HOME. NURSE LISTENED THERAPEUTICALLY THEN INFORMED HER THAT AT TIMES DOCTORS HAVE TO POSTPONE/RESCHEDULE PROCEDURES TO ADDRESS MORE SERIOUS CASES TO SAVE LIVES. PT WAS REASSURED HER CONDITION WILL BE ADDRESSED IN A TIMELY MANNER, SHE STATED UNDERSTANDING AND BECAME MORE RELAXED AND LESS ANXIOUS. WILL CONTINUE TO MONITOR AND ADDRESS NEEDS.
--- NOTE | 2021-04-13 12:15 | NUR ---
PT IN RECLINER WATCHING TV. PT C/O RIGHT HIP PAIN 09/12; PT MEDICATED, WILL REASSESS. PT NOTIFIED OF STENT PLACEMENT PROCEDURE SCHEDULE. CALL LIGHT WITHIN REACH.
--- NOTE | 2021-04-13 16:10 | NUR ---
PT SITTING IN BED. NO DISTRESS NOTED. PT WAS TAKEN TO THE OPERATING ROOM FOR LEFT STENT PLACEMENT. VS WITHIN NORMAL LIMITS.
--- NOTE | 2021-04-13 19:00 | NUR ---
RECIEVED REPORT FROM MARILY COOK
--- NOTE | 2021-04-13 20:25 | NUR ---
PT RESTING IN SEMI FOWLERS POSITION. PT IS A/O X3. ASSESSMENT COMPLETED. RESPIRATIONS ARE EVEN AND UNLABORED. LUNG SOUNDS CLEAR. HEART RHYTHM NORMAL. BOWEL SOUNDS ACTIVE. #22G RH INFUSING WITH IVF PER ORDER, SITE PATENT. SKIN INTACT.PULSES STRONG. ENRIQUE ZAMORA NOTED. PT COMPLAINS OF 6/10 RIGHT HIP PAIN AND FREQUENT URINATION. BLOODY URINE NOTED DUE TO SENT PLACEMENT. PT TO BE MEDICATED PER EMAR. PT DENIES OF ANY ADDITIONAL NEEDS. ALL SAFTEY PRECAUTIONS ARE IN PLACE WITH CALL LIGHT IN REACH. WILL CONTINUE TO MONITOR.
--- NOTE | 2021-04-14 00:05 | NUR ---
PT SLEEPING IN LOW FOWLERS POSITION. REPSIRAITONS EVEN AND UNLABORED. #22G RH INFUSING WITH IVF PER ORDER, SITE REMAINS HEALTHY AND PATENT. NO SIGNS OF ANY PAINS OR DISCOMFORTS. ALL SAFTEY PRECAUTIONS ARE IN PLACE WITH CALL LIGHT IN REACH. WILL CONTINUE TO MONITOR
--- NOTE | 2021-04-14 03:53 | NUR ---
PT RESTING IN SEMI FOWLERS POSITION. RESPIRATIONS EVEN AND UNLABORED ON ROOM AIR. PT STATES SHE HAS HAD A GOOD NIGHTS SLEEP. IVF INFUSING PER ORDER, SITE REMAINS HEALTHY AND PATENT. PT DENIES OF ANY PAINS OR DISCOMFORTS AT THIS TIME. ALL SAFTEY PRECAUTIONS ARE IN PLACE WITH CALL LIGHT IN REACH. WILL CONTINUE TO MONITOR.
[2021-04-14 04:00] VITALS: BP 193/88
[2021-04-14 05:22] VITALS: BP 156/68
[2021-04-14 05:23] LABS: HEMATOCRIT 30.9 % (37.0-47.0); HEMOGLOBIN 9.7 g/dl (12.0-16.0); MEAN CELL VOLUME 90.1 fL CALC (80.0-100.0); MEAN CORPUSCULAR HGB 28.3 pG CALC (26.0-32.0); MEAN CORPUSCULAR HGB CONC 31.4 g/dL CAL (32.0-36.0); RED BLOOD COUNT 3.43 mill/uL (4.20-5.60); RED CELL DISTRI WIDTH 12.5 % (11.5-15.5)
--- NOTE | 2021-04-14 05:35 | NUR ---
REASSESSMENT OF BP REUSLTING IN 156/68, HR 76. PT REMAINS SLEEPING IN LOW FOLWERS POSITION. NO SIGNS OF ANY DISTRESS.
[2021-04-14 05:42] LABS: ALBUMIN 3.4 g/dL (3.2-5.0); MAGNESIUM 1.7 mg/dL (1.6-2.3); POTASSIUM 4.8 mmol/l (3.5-5.1)
[2021-04-14 05:50] LABS: CREATININE 2.4 mg/dL (0.5-1.0)
--- NOTE | 2021-04-14 08:00 | NUR ---
ASSESSMENT AND VITALS ALLOWED AT THIS TIME. PT STATES NO PAIN AT THIS TIME. IV 22G RH SL FLUSHED WITH NO RESISTANCE. FALL/SAFETY PRECAUTIONS IN PLACE. CALL LIGHT IS WITHIN REACH. GLUCOSE METER CHECK 121, NO COVERAGE NEEDED PER SLIDING SCALE.
[2021-04-14 08:03] VITALS: BP 188/85
[2021-04-14] MEDS ORDERED: LORTAB 7.57.5 MG PO (09:00)
--- NOTE | 2021-04-14 12:00 | NUR ---
PT EATING LUNCH AT THIS TIME. STATES NO PAIN. IV PATENT. STATES NO OTHER NEEDS AT THIS TIME. CALL LIGHT WITHIN FALL/SAFETY PERCAUTIONS WITHIN PLACE.
--- NOTE | 2021-04-14 12:24 | NUR ---
Discharge instructions given. Patient verbalizes understanding of same. Discharged in stable condition via Wheelchair to Home with staff. All belongings sent with pt. IV RH 22G RH REMOVED. CATHETER FULLY INTACT.
== END 2021-04-14 12:24 | disposition home or self-care (01) ==
LOC: ED 17:08 → ED-I 19:50 → ED 20:08 → MS2 20:09
PROVIDERS: Internal Medicine Nephrology; Nurse Practitioner; ADMIT Hospitalist; ATTEND Hospitalist
PROC: 0T778DZ Dilation of Left Ureter with Intraluminal Device, Via Natural or Artificial Opening Endoscopic (ICD-10-PCS; principal; 2021-04-13)
PROC: BT1F1ZZ Fluoroscopy of Left Kidney, Ureter and Bladder using Low Osmolar Contrast (ICD-10-PCS; 2021-04-13)
DX: N13.2 Hydronephrosis with renal and ureteral calculous obstruction (principal); N17.0 Acute kidney failure with tubular necrosis; I12.9 Hypertensive chronic kidney disease with stage 1 through stage 4 chronic kidney disease, or unspecified chronic kidney disease; E11.22 Type 2 diabetes mellitus with diabetic chronic kidney disease; N18.30 Chronic kidney disease, stage 3 unspecified; E11.42 Type 2 diabetes mellitus with diabetic polyneuropathy; I48.0 Paroxysmal atrial fibrillation; I25.10 Atherosclerotic heart disease of native coronary artery without angina pectoris; D63.1 Anemia in chronic kidney disease; M25.551 Pain in right hip; G89.29 Other chronic pain; E78.5 Hyperlipidemia, unspecified; Z90.49 Acquired absence of other specified parts of digestive tract; Z79.84 Long term (current) use of oral hypoglycemic drugs; Z20.822 Contact with and (suspected) exposure to COVID-19
CPT/HCPCS: C1769; J1956; Q9967

== ENCOUNTER 2021-04-30 07:47 | Day surgery (SDC) | payer MEDICARE ==
[~2021-04-30] VITALS: Ht 162.6 cm; Wt 62.6 kg
[~2021-04-30 07:47] MED LIST changes: +IBUPROFEN600 MG PO; +MEDROL DOSEPAK4 MG PO; +OCUVIT1 PO; +ROSUVASTATIN CA10 MG PO; +TRESIBA FL200 UNIT/M SC; +TRULICITY0.75 MG/0. SC
[2021-04-30] MEDS ORDERED: TRULICITY0.75 MG/0. SC (08:11)
[2021-04-30 11:05] VITALS: BP 153/89
== END 2021-04-30 11:14 | disposition home or self-care (01) ==
LOC: ORM 07:47
PROVIDERS: ATTEND Urology
PROC: 0TC48ZZ Extirpation of Matter from Left Kidney Pelvis, Via Natural or Artificial Opening Endoscopic (ICD-10-PCS; principal; 2021-04-30)
PROC: 0T778DZ Dilation of Left Ureter with Intraluminal Device, Via Natural or Artificial Opening Endoscopic (ICD-10-PCS; 2021-04-30)
DX: N20.0 Calculus of kidney (principal); I10 Essential (primary) hypertension; E11.42 Type 2 diabetes mellitus with diabetic polyneuropathy; I25.10 Atherosclerotic heart disease of native coronary artery without angina pectoris; K21.9 Gastro-esophageal reflux disease without esophagitis; E78.5 Hyperlipidemia, unspecified; Z79.899 Other long term (current) drug therapy; Z79.4 Long term (current) use of insulin; Z87.442 Personal history of urinary calculi; Z96.0 Presence of urogenital implants
CPT/HCPCS: J0131; J1956; Q9967

== ENCOUNTER 2021-07-15 09:39 | Emergency (ER) | payer MEDICARE ==
[~2021-07-15] VITALS: Ht 162.6 cm; Wt 65.4 kg
[2021-07-15 10:36] LABS: HEMATOCRIT 34.8 % (37.0-47.0); HEMOGLOBIN 11.3 g/dl (12.0-16.0); IMMATURE GRANULOCYTES 0.3 % (0.0-5.0); MEAN CELL VOLUME 87.9 fL CALC (80.0-100.0); MEAN CORPUSCULAR HGB 28.5 pG CALC (26.0-32.0); MEAN CORPUSCULAR HGB CONC 32.5 g/dL CAL (32.0-36.0); NEUT# 2.15 thou/uL (2.00-7.15); RED BLOOD COUNT 3.96 mill/uL (4.20-5.60); RED CELL DISTRI WIDTH 14.1 % (11.5-15.5)
[2021-07-15 10:54] LABS: BILIRUBIN, TOTAL 0.3 mg/dL (0.0-1.4); CREATININE 1.6 mg/dL (0.5-1.0); TOTAL PROTEIN 6.6 g/dL (6.3-8.2)
[2021-07-15 11:03] LABS: ALBUMIN 4.2 g/dL (3.2-5.0)
[2021-07-15] MEDS ORDERED: ZESTRIL5 M1 PO (11:40)
[2021-07-15 11:52] VITALS: BP 147/98
== END 2021-07-15 11:55 | disposition home or self-care (01) ==
LOC: ED 09:39
PROVIDERS: Family Medicine
DX: I10 Essential (primary) hypertension (principal); E11.40 Type 2 diabetes mellitus with diabetic neuropathy, unspecified; E78.5 Hyperlipidemia, unspecified; I25.10 Atherosclerotic heart disease of native coronary artery without angina pectoris; Z79.4 Long term (current) use of insulin; Z90.49 Acquired absence of other specified parts of digestive tract

== ENCOUNTER 2021-07-17 22:14 | Emergency (ER) | payer MEDICARE ==
[~2021-07-17] VITALS: Ht 162.6 cm; Wt 65.5 kg
[2021-07-17] VITALS (13 sets, daily range): BP systolic 158–195; BP diastolic 87–114
[~2021-07-17 22:14] MED LIST changes: +ZESTRIL5 M1 PO
[2021-07-17 23:00] LABS: HEMATOCRIT 33.8 % (37.0-47.0); HEMOGLOBIN 10.8 g/dl (12.0-16.0); MEAN CORPUSCULAR HGB 28.1 pG CALC (26.0-32.0); NEUT# 2.06 thou/uL (2.00-7.15); RED BLOOD COUNT 3.84 mill/uL (4.20-5.60); RED CELL DISTRI WIDTH 14.1 % (11.5-15.5)
[2021-07-17 23:04] LABS: IMMATURE GRANULOCYTES 0.5 % (0.0-5.0)
[2021-07-17 23:24] LABS: ALBUMIN 4.3 g/dL (3.2-5.0); ALKALINE PHOSPHATASE 68 u/l (38-126); ANION GAP 14 (6-22 (CALC)); BILIRUBIN, TOTAL 0.3 mg/dL (0.0-1.4); BUN 21 mg/dL (8-23); BUN/CREATININE RATIO 12 (12-20 (CALC)); CARBON DIOXIDE 26 mmol/l (22-30); CHLORIDE 105 mmol/l (95-108); CREATININE 1.8 mg/dL (0.5-1.0); GFR 27 ML/MIN (>=60 (CALC)); GFR FOR AFR.AMER. 33 ML/MIN (>=60 (CALC)); POTASSIUM 3.8 mmol/l (3.5-5.1); SGOT/AST 28 u/l (9-36); SODIUM 141 mmol/l (137-146); TOTAL PROTEIN 7.1 g/dL (6.3-8.2)
[2021-07-17 23:35] LABS: MYOGLOBIN 66 ng/mL (0 - 62)
[2021-07-18] VITALS (18 sets, daily range): BP systolic 117–179; BP diastolic 61–95
== END 2021-07-18 08:43 | disposition home or self-care (01) ==
LOC: ED 22:14
PROVIDERS: Emergency Medicine
DX: I10 Essential (primary) hypertension (principal); E11.40 Type 2 diabetes mellitus with diabetic neuropathy, unspecified; I25.10 Atherosclerotic heart disease of native coronary artery without angina pectoris; E78.5 Hyperlipidemia, unspecified; Z79.4 Long term (current) use of insulin

== ENCOUNTER 2022-06-03 12:12 | Observation (INO) | payer MEDICARE ==
[~2022-06-03] VITALS: Ht 162.6 cm; Wt 65.1 kg
[2022-06-03] VITALS (28 sets, daily range): BP systolic 115–162; BP diastolic 52–88
--- NOTE | 2022-06-03 12:25 | NUR ---
PT TO ROOM 9 VIA W/C FOR TRIAGE.
[2022-06-03 13:09] LABS: BASO% 0.4 % (0-3); EOS% 1.4 % (0-8); IMMATURE GRANULOCYTES 0.2 % (0.0-5.0); MEAN CORPUSCULAR HGB 23.9 pG CALC (26.0-32.0); MEAN CORPUSCULAR HGB CONC 29.2 g/dL CAL (32.0-36.0); MONO% 8.4 % (2-13); NEUT# 3.74 thou/uL (2.00-7.15); NEUT% 74.6 % (42-76); RED BLOOD COUNT 3.3 mill/uL (4.20-5.60); RED CELL DISTRI WIDTH 15.9 % (11.5-15.5)
[2022-06-03 13:11] LABS: HEMATOCRIT 27.1 % (37.0-47.0); HEMOGLOBIN 7.9 g/dl (12.0-16.0); MEAN CELL VOLUME 82.1 fL CALC (80.0-100.0)
--- NOTE | 2022-06-03 13:12 | NUR ---
Reassessment of patient completed. No distress noted.
[2022-06-03 13:22] LABS: BILIRUBIN, TOTAL 0.4 mg/dL (0.02-1.3); CREATININE 2.2 mg/dL (0.5-1.0); TOTAL PROTEIN 6.7 g/dL (6.3-8.2)
[2022-06-03 13:23] LABS: INTERNATIONAL NORMALIZED RATIO 1.3 RATIO (0.7-1.3); PROTHROMBIN TIME 13.1 SECONDS (9.0-12.5)
[2022-06-03 13:32] LABS: ALBUMIN 3.3 g/dL (3.2-5.0); POTASSIUM 5.2 mmol/l (3.5-5.1)
--- NOTE | 2022-06-03 13:41 | NUR ---
AT THE BEDSIDE. RECTAL EXAM COMPLETED. PATIENT IN NO DISTRESS. FLU, COVID AND UA OBTAINED. HGB AT MD OFFICE WAS 8.6.
[2022-06-03 14:10] LABS: URINE BILIRUBIN - DIPSTICK NEGATIVE (NEGATIVE); URINE BLOOD DIPSTICK NEGATIVE (NEGATIVE); URINE COLOR YELLOW; URINE GLUCOSE - DIPSTICK NEGATIVE (NEGATIVE); URINE KETONE NEGATIVE (NEGATIVE); URINE LEUK ESTERASE NEGATIVE (NEGATIVE); URINE PH 5.5 (4.5-8.0); URINE PROTEIN - DIPSTICK 30 mg/dL (NEG-TRACE); URINE SPECIFIC GRAVITY 1.025; URINE UROBILINOGEN - DIPSTICK 0.2 E.U./dL (0.2)
[2022-06-03 14:11] LABS: URINE NITRITE - DIPSTICK NEGATIVE (Negative)
[2022-06-03 14:13] LABS: URINE WBC 0-2 WBC/hpf (0-5)
[2022-06-03 14:14] LABS: URINE HYALINE CAST FEW lpf (NONE-RARE); URINE SQUAMOUS EPITHELIAL CELL FEW EPI/hpf (0-FEW)
--- NOTE | 2022-06-03 14:30 | NUR ---
Reassessment of patient completed. No distress noted.
--- NOTE | 2022-06-03 15:52 | NUR ---
Reassessment of patient completed. No distress noted. PATIENT REQ WATER
--- NOTE | 2022-06-03 16:15 | NUR ---
Reassessment of patient completed. No distress noted.
--- NOTE | 2022-06-03 17:30 | NUR ---
Reassessment of patient completed. No distress noted.
--- NOTE | 2022-06-03 18:10 | NUR ---
ASSISTED PATIENT TO BEDSIDE FOR DINNER TRAY. BSC EMPTIED.
--- NOTE | 2022-06-03 18:43 | NUR ---
Reassessment of patient completed. No distress noted.
--- NOTE | 2022-06-03 21:34 | NUR ---
VERBAL REPORT GIVEN TO CHAGO ON MEDSURG/TELEMETRY. NURSE WILL CALL WHEN THE BED IS CLEAN.
--- NOTE | 2022-06-03 22:10 | NUR ---
REPORT RECIEVED. PT ARRIVED TO [facility] ROOM 274. PT A/OX3. PT REPORTS HAVING EGD IN [place] 06/02/22 WITH RESULTS STILL PENDING. PT REPORTS SMALL AMOUNT OF BLOOD IN STOOL AND HEMERROIDS. RESPIRATIONS EVEN AND UNLABORED ON ROOM AIR. LUNG SOUNDS CLEAR. HEART RHYTHM NORMAL WITH TELE IN PLACE. BOWEL SOUNDS ACTIVE. #18G LAC PATENT, IVF STARTED PER ORDER. GLUCOSE 131, NO COVERAGE NEEDED. SKIN INTACT. PT DENIES OF ANY PAIN AT THIS TIME. PT ORIENTED TO ROOM AND CALL LIGHT SYSTEM. ALL [employer] PRECAUTIONS ARE IN PLACE WITH CALL LIGHT IN REACH.
--- NOTE | 2022-06-03 22:32 | NUR ---
Checked patient glucose check, the glucose read 131, the nurse was notified.
[2022-06-04] VITALS (9 sets, daily range): BP systolic 117–148; BP diastolic 57–78
--- NOTE | 2022-06-04 00:35 | NUR ---
PT SLEEPING IN SEMI FOLWERS POSITION. RESPIRATIONS EVEN AND UNLABORED ON ROOM AIR. TELE MONITORING IN PLACE. #18G LAC INFUSING WITH IVF PER ORDER, SITE PATENT. NO SIGNS OF ANY DISTRESS. ALL SAF[employer] PRECAUTIONS ARE IN PLACE WITH CALL LIGHT IN REACH
--- NOTE | 2022-06-04 02:03 | NUR ---
GEOMATICS PROFESSOR INFORMED OF 6 BEAT RUN OF VTACH. PT SLEEPING IN SEMI FOWLERS POSITION. PT AWAKENS TO NAME. VSS. RT CALLED FOR EKG. PT DENIES OF ANY CHEST PAIN OR PALPITATIONS.
--- NOTE | 2022-06-04 04:20 | NUR ---
PT SLEEPING IN SEMI FOWLERS POSITION. RSPIRATIONS EVEN AND UNLABORED ON ROOMA IR. TELE MONITORING IN PLACE. IV INFUSING WITH IVF PER ORDER, SITE PATENT. NO SIGNS OF ANY DISTRESS. ALL SAFTEY PRCAUTIONS ARE IN PLACE WITH CALL LIGHT IN REACH
[2022-06-04 05:28] LABS: HEMATOCRIT 24.2 % (37.0-47.0); HEMOGLOBIN 7.2 g/dl (12.0-16.0); MEAN CELL VOLUME 81.8 fL CALC (80.0-100.0); MEAN CORPUSCULAR HGB 24.3 pG CALC (26.0-32.0); MEAN CORPUSCULAR HGB CONC 29.8 g/dL CAL (32.0-36.0); RED BLOOD COUNT 2.96 mill/uL (4.20-5.60); RED CELL DISTRI WIDTH 15.9 % (11.5-15.5)
[2022-06-04 06:05] LABS: ALBUMIN 2.8 g/dL (3.2-5.0); BILIRUBIN, TOTAL 0.5 mg/dL (0.02-1.3); CREATININE 1.9 mg/dL (0.5-1.0); TOTAL PROTEIN 5.6 g/dL (6.3-8.2)
--- NOTE | 2022-06-04 07:52 | NUR ---
PT RESTING COMFORTABLY. VITAL SIGNS STABLE. NO NEEDS AT THIS TIME.
--- NOTE | 2022-06-04 11:55 | NUR ---
PT RESTING COMFORTABLY. VITAL SIGNS STABLE. PT RECEIVING PRBCS.
--- NOTE | 2022-06-04 15:58 | NUR ---
DC INSTRUCTIONS GIVEN. MEDICATION INSTRUCTIONS GIVEN. IV DCED. TELE DCED. PT TAKEN TO CAR IN WC.
[2022-06-06] MEDS ORDERED: PROTONIX40 M2 PO (13:52)
== END 2022-06-04 15:53 | disposition home health service (06) ==
LOC: ED 12:12 → ED-I 13:08 → ED 13:08 → ED-I 15:40 → ED 16:04 → MS2 16:05
PROVIDERS: Family Medicine; ADMIT Internal Medicine; ATTEND Internal Medicine
PROC: 30233N1 Transfusion of Nonautologous Red Blood Cells into Peripheral Vein, Percutaneous Approach (ICD-10-PCS; principal; 2022-06-04)
DX: D64.9 Anemia, unspecified (principal); I12.9 Hypertensive chronic kidney disease with stage 1 through stage 4 chronic kidney disease, or unspecified chronic kidney disease; E11.22 Type 2 diabetes mellitus with diabetic chronic kidney disease; N18.9 Chronic kidney disease, unspecified; E11.40 Type 2 diabetes mellitus with diabetic neuropathy, unspecified; I25.10 Atherosclerotic heart disease of native coronary artery without angina pectoris; K64.4 Residual hemorrhoidal skin tags; K44.9 Diaphragmatic hernia without obstruction or gangrene; E78.5 Hyperlipidemia, unspecified; Z90.49 Acquired absence of other specified parts of digestive tract; Z79.4 Long term (current) use of insulin; Z20.822 Contact with and (suspected) exposure to COVID-19
CPT/HCPCS: P9016

== ENCOUNTER 2022-06-12 18:10 | Inpatient (IN) | payer MEDICARE ==
[2022-06-12] VITALS (14 sets, daily range): BP systolic 143–186; BP diastolic 74–125
[~2022-06-12] VITALS: Ht 162.6 cm; Wt 63.8 kg
[~2022-06-12 18:10] MED LIST changes: +PROTONIX40 M2 PO; +TRESIBA FL100 UNIT/M SC; -TRESIBA FL200 UNIT/M SC
--- NOTE | 2022-06-12 18:15 | NUR ---
PT ARRIVE TO ER VIA POV. PT ASSISTED TO RM 8. PROVIDER NOTIFIED.
[2022-06-12 19:29] LABS: BASO% 0.2 % (0-3); EOS% 0.5 % (0-8); HEMOGLOBIN 8.9 g/dl (12.0-16.0); IMMATURE GRANULOCYTES 0.3 % (0.0-5.0); LYMPH% 10.6 % (15-41); MEAN CELL VOLUME 81.5 fL CALC (80.0-100.0); MEAN CORPUSCULAR HGB 24.2 pG CALC (26.0-32.0); MEAN CORPUSCULAR HGB CONC 29.7 g/dL CAL (32.0-36.0); MONO% 10.2 % (2-13); NEUT# 7.35 thou/uL (2.00-7.15); NEUT% 78.2 % (42-76); RED BLOOD COUNT 3.68 mill/uL (4.20-5.60); RED CELL DISTRI WIDTH 17.6 % (11.5-15.5)
[2022-06-12 19:43] LABS: CREATININE 1.4 mg/dL (0.5-1.0); MAGNESIUM 1.9 mg/dL (1.6-2.3); POTASSIUM 4.7 mmol/l (3.5-5.1); TOTAL PROTEIN 6.3 g/dL (6.3-8.2)
[2022-06-12 20:06] LABS: BILIRUBIN, TOTAL 1.1 mg/dL (0.02-1.3)
[2022-06-12 20:14] LABS: TSH, 3RD GENERATION 2.35 uIU/mL (0.47 - 4.68)
--- NOTE | 2022-06-12 22:00 | NUR ---
PT BP IS NOT ACCURATE 157/125.CUFF WAS FALLING OFF
[2022-06-12 22:14] LABS: URINE BILIRUBIN - DIPSTICK NEGATIVE (NEGATIVE); URINE BLOOD DIPSTICK TRACE-INTACT (NEGATIVE); URINE COLOR YELLOW; URINE GLUCOSE - DIPSTICK NEGATIVE (NEGATIVE); URINE KETONE NEGATIVE (NEGATIVE); URINE LEUK ESTERASE NEGATIVE (NEGATIVE); URINE PH 5.5 (4.5-8.0); URINE PROTEIN - DIPSTICK 100 mg/dL (NEG-TRACE); URINE SPECIFIC GRAVITY >=1.030; URINE UROBILINOGEN - DIPSTICK 0.2 E.U./dL (0.2)
[2022-06-12 22:15] LABS: URINE NITRITE - DIPSTICK NEGATIVE (Negative)
[2022-06-12 22:22] LABS: URINE BACTERIA MODERATE hpf; URINE SQUAMOUS EPITHELIAL CELL FEW EPI/hpf (0-FEW)
--- NOTE | 2022-06-12 23:00 | NUR ---
BP 182/94 IS NOT ACCURATE. PT PULLED HER CUFF OFF TRYING TO GET OUT OF BED.
--- NOTE | 2022-06-12 23:18 | NUR ---
REPORT TO BON
--- NOTE | 2022-06-12 23:18 | NUR ---
PT WAS INCONTINENT OF STOOL "IT JUST CAME OUT"
--- NOTE | 2022-06-12 23:47 | NUR ---
PT WAS INCONTINENT OF STOOL AND WAS GETTING OUT OF BED. BON FROM [facility] AT BEDSIDE TO HELP RN CLEAN UP AND BRING HER UPSTAIRS IN A CHAIR
[2022-06-13] VITALS (35 sets, daily range): BP systolic 136–181; BP diastolic 73–116
--- NOTE | 2022-06-13 00:22 | NUR ---
PT DO NOT REMEMBER HER HOME MEDICATION OR DOSE. PT STATES SHE IS GOING TO ASK HER FRIEND TO DRING HER MED LIST.
--- NOTE | 2022-06-13 04:20 | NUR ---
PT ASSISTED TO BSC AND BACK TO BED. URINE IS YELLOW AND CLEAR. SMALL BM NOTED. NO OTHER NEEDS OR CONCERN VOICED. CALL LIGHT IN REACH AND BED IN LOWEST POSITION.
[2022-06-13 05:21] LABS: BASO% 0.3 % (0-3); EOS% 1.3 % (0-8); HEMATOCRIT 27.8 % (37.0-47.0); HEMOGLOBIN 8.2 g/dl (12.0-16.0); IMMATURE GRANULOCYTES 0.3 % (0.0-5.0); LYMPH% 12.3 % (15-41); MEAN CELL VOLUME 81.8 fL CALC (80.0-100.0); MEAN CORPUSCULAR HGB 24.1 pG CALC (26.0-32.0); MEAN CORPUSCULAR HGB CONC 29.5 g/dL CAL (32.0-36.0); MONO% 9.2 % (2-13); NEUT# 5.93 thou/uL (2.00-7.15); NEUT% 76.6 % (42-76); RED BLOOD COUNT 3.4 mill/uL (4.20-5.60); RED CELL DISTRI WIDTH 17.6 % (11.5-15.5)
[2022-06-13 05:35] LABS: ALBUMIN 2.9 g/dL (3.2-5.0); BILIRUBIN, TOTAL 0.9 mg/dL (0.02-1.3); CREATININE 1.4 mg/dL (0.5-1.0); POTASSIUM 4.2 mmol/l (3.5-5.1); TOTAL PROTEIN 6.3 g/dL (6.3-8.2)
--- NOTE | 2022-06-13 08:06 | NUR ---
PT RESTING IN BED EATING BREAKFAST. STATES NO PAIN. UPDATED PT IN PLAN OF CARE. ASSESMENT COMPLETED. FALL/SAFTEY PRECAUITON IN PLACE. CALL LIGHT WITHIN REACH.
--- NOTE | 2022-06-13 12:00 | NUR ---
PT RESTING IN RECLINER. STATES NO NEEDS AT THIS TIME. BREATHIGN EVEN AND UNLABORED. FALL/SAFTEY PRECAUTION IN PLACE. CALL LIGHT WITHIN REACH
--- NOTE | 2022-06-13 16:39 | NUR ---
RAPID RESPONSE CALLED FOR PT HR SUSTAINING 140-150 BPM VITALS OBTAINED, BP: 170/69 HR: 145 SPO2: 100 RR: 22 PT SHOWED NO SIGNS OF DISTRESS, STATES PAIN IN ABD. EKG OBTAINED. NOTFIIED ORDERS FOR CARDIZEM/ ICU TRANFER.
--- NOTE | 2022-06-13 17:00 | NUR ---
PT TRANSFERRED TO ICU WITH AIDE VIA STRETCHER. REPORT GIVEN TO FRINGE MAKER VIA BED SIDE.
--- NOTE | 2022-06-13 18:02 | NUR ---
rcd pt from [facility]. pt in afib rvr. just got off the phone with material specialist. plan is to put pt on amio. pt is already on cardizem at 15. pt denies any chest pain or sob. pt extreme rvr in the 160s.
[2022-06-14] VITALS (49 sets, daily range): BP systolic 109–185; BP diastolic 56–102
[2022-06-14 05:25] LABS: HEMATOCRIT 26.2 % (37.0-47.0); MEAN CELL VOLUME 81.4 fL CALC (80.0-100.0); MEAN CORPUSCULAR HGB 24.8 pG CALC (26.0-32.0); MEAN CORPUSCULAR HGB CONC 30.5 g/dL CAL (32.0-36.0); RED BLOOD COUNT 3.22 mill/uL (4.20-5.60); RED CELL DISTRI WIDTH 17.9 % (11.5-15.5)
[2022-06-14 05:39] LABS: ALBUMIN 2.8 g/dL (3.2-5.0); CREATININE 1.5 mg/dL (0.5-1.0); MAGNESIUM 1.9 mg/dL (1.6-2.3); POTASSIUM 4.5 mmol/l (3.5-5.1); TOTAL PROTEIN 6.1 g/dL (6.3-8.2)
--- NOTE | 2022-06-14 07:55 | NUR ---
REPORT RECEIVED FROM HEATING PLANT SUPERINTENDENT - PT OBSERVED IN BED - EDMUND @ 10 AND PT CURRENTLY STABLE - HEP SQ FOR ANTI COAG - PT SR ON TELE HR 87 - NO S/S DISTRESS ON ROOM AIR - BED IN LOW LOCKED POSITION WITH SAFETY PRECAUTIONS IN PLACE - CALL LIGHT IN REACH
--- NOTE | 2022-06-14 09:22 | NUR ---
PT BP STABLE, TITRATING CARDIZEM PER PROTOCOL - NO S.S DISTRESS - CALL LIGHT IN REACH
--- NOTE | 2022-06-14 11:00 | NUR ---
CARDIZEM TITRATED TO ZERO AND PT STABLE ON MONITOR - NNO - CALL LIGHT IN REACH
--- NOTE | 2022-06-14 12:23 | NUR ---
Spoke to DR Borges at 0915 and given verbal order to continue PT s/p transfer to ICU. PT Seth Valenzuela aware and agreed to continue treatment.
--- NOTE | 2022-06-14 13:00 | NUR ---
PT BP STABLE OFF CARDIZEM - PT DENIES ANY PAIN OR NEEDS - CALL LIGHT IN REACH
--- NOTE | 2022-06-14 16:01 | NUR ---
ECHO COMPLETED - PT TAKEN TO MED SURG FOR A SHOWER - STAFF AWARE - PT SET UP AND EDUCATED ON PULL CORD WHEN DONE - MED SURG TO CALL WHEN SHES DONE
[2022-06-15] VITALS (22 sets, daily range): BP systolic 124–178; BP diastolic 54–114
[2022-06-15 05:42] LABS: HEMATOCRIT 29.2 % (37.0-47.0); HEMOGLOBIN 8.8 g/dl (12.0-16.0); MEAN CELL VOLUME 80.9 fL CALC (80.0-100.0); MEAN CORPUSCULAR HGB 24.4 pG CALC (26.0-32.0); MEAN CORPUSCULAR HGB CONC 30.1 g/dL CAL (32.0-36.0); RED BLOOD COUNT 3.61 mill/uL (4.20-5.60)
[2022-06-15 05:56] LABS: ALBUMIN 2.9 g/dL (3.2-5.0); BILIRUBIN, TOTAL 0.9 mg/dL (0.02-1.3); CREATININE 1.6 mg/dL (0.5-1.0); POTASSIUM 4.2 mmol/l (3.5-5.1); TOTAL PROTEIN 6.3 g/dL (6.3-8.2)
--- NOTE | 2022-06-15 06:31 | NUR ---
PT BLOOD SUGAR 56, AWAKE ALERT AND ORIENTED X3. GAVE HER 2 CUPS OF ORANGE JUICE WITH SUGAR AND GRAM CRACKLES. RECHECK BS 119, PT UP IN THE CHAIR.
--- NOTE | 2022-06-15 08:00 | NUR ---
RCD REPORT FROM NIGHTSHIFT. PT IS UP IN THE BEDSIDE CHAIR SLEEPING. PT IS IN NO DISTRESS. CHEST RISING IS NOTED. VSS. PT IS NOT ON ANY O2. BELLY IS DISTENDED AND FULL OF GAS. MD AT BEDSIDE. PLAN IS TO HAVE PT MOVE AROUND AND GIVE MIRALAX.
--- NOTE | 2022-06-15 10:06 | NUR ---
PT IS IN BATHROOM AT THE MOMENT.
--- NOTE | 2022-06-15 11:30 | NUR ---
pt transferred to [facility]. report given to nurse.
--- NOTE | 2022-06-15 12:00 | NUR ---
RECEIVED REPORT FROM ICU NURSE.
--- NOTE | 2022-06-15 12:30 | NUR ---
PT ARRIVED TO VIA W/C.ALERT AND ORIENTED.ABLE TO MAKE NEEDS KNOWN.NO C/O PAIN.LUNGS CLEAR IN ALL GANNON,RESPIRATIONS EVEN,UNLABORED.PT TO RECLINER.SAFETY PRECAUTIONS IN PLACE.CALL LIGHT WITHIN REACH.
--- NOTE | 2022-06-15 18:33 | NUR ---
PT ALERT AND ORIENTED X3.ABLE TO MAKE NEEDS KNOWN.NO C/O PAIN.PT SEATED IN RECLINER.SAFETY PRECATIONS IN PLACE.CALL LIGHT WITHIN REACH.
--- NOTE | 2022-06-15 19:58 | NUR ---
PATIENT RESTING IN BED. ALERT WITH PERIODS OF CONFUSION. PLEASANT AND COOPERATIVE ALTHOUGH SHE DOES WALK OUT INTO THE HALLWAY ASKING FOR THINGS. NEEDS FREQUENT REDIRECTING. ASSESSMENT COMPLETE. DENIES ANY PAIN. BED REMAINS IN LOW POSITION. BED ALARM ACTIVE FOR SAFETY REASONS. CALL SIDDIQUI IN REACH.
--- NOTE | 2022-06-15 23:27 | NUR ---
SPOKE WITH PRELOAD SUPERVISOR ON PATIENTS IVF ORDER. OPTICAL E[employer]ECTS LAYOUT PERSON VOICED TO PASS ON IN THE MORNING TO DAY SHIFT NURSE TO CLARIFY WITH MD BEFORE RESTARTING THEM.
[2022-06-16] VITALS (7 sets, daily range): BP systolic 130–178; BP diastolic 59–90
--- NOTE | 2022-06-16 00:20 | NUR ---
PATIENT RESTING ON HER RIGHT SIDE. NO DISTRESS NOTED. NO COMPLAINTS VOICED. BED REMAINS IN LOW POSITION. CALL SIDDIQUI IN REACH. BED ALARM REMAINS ACTIVE FOR SAFETY.
--- NOTE | 2022-06-16 04:25 | NUR ---
PATIENT RESTING IN BED. NO COMPLAINTS VOICED. NO DISTRESS NOTED. BED REMAINS IN LOW POSITION. BED ALARM ACTIVE FOR SAFETY.
[2022-06-16 05:34] LABS: BASO% 0.2 % (0-3); EOS% 1.4 % (0-8); HEMATOCRIT 27.2 % (37.0-47.0); HEMOGLOBIN 8.4 g/dl (12.0-16.0); IMMATURE GRANULOCYTES 0.4 % (0.0-5.0); LYMPH% 12.3 % (15-41); MEAN CELL VOLUME 80.5 fL CALC (80.0-100.0); MEAN CORPUSCULAR HGB 24.9 pG CALC (26.0-32.0); MEAN CORPUSCULAR HGB CONC 30.9 g/dL CAL (32.0-36.0); MONO% 12.3 % (2-13); NEUT# 6.17 thou/uL (2.00-7.15); NEUT% 73.4 % (42-76); RED BLOOD COUNT 3.38 mill/uL (4.20-5.60); RED CELL DISTRI WIDTH 17.8 % (11.5-15.5)
[2022-06-16 05:39] LABS: ALBUMIN 2.9 g/dL (3.2-5.0); BILIRUBIN, TOTAL 0.9 mg/dL (0.02-1.3); CREATININE 1.5 mg/dL (0.5-1.0); POTASSIUM 4.7 mmol/l (3.5-5.1); TOTAL PROTEIN 6.3 g/dL (6.3-8.2)
--- NOTE | 2022-06-16 07:10 | NUR ---
ER CALLED WITH TELE READING OF V [facility]. PT FOUND IN BED SLEEPING, AWAKENED PT. PT DENIES SOB, CHEST PAINS. HEART SOUNDS NORMAL , B/P ELEVTED. INFORMED, ONLY ORDER AT THIS ITME WAS TO MAKES SURE A CMP WAS COMPLETED ON PT. CONFIRMED CMP WAS DRAWN THIS MORNING. WILL CONTINUE TO MONITOR PT CLOSELY.
--- NOTE | 2022-06-16 08:00 | NUR ---
PT SITTING UP IN BED EATING BREAKFAST AWAKE AND ALERT, ORIENTED TO PERSON AND PLACE REORIENTED TO TIME, CONFUSED AT TIMES. TELE ON WITH ALL LEADS ATTACHED READING SR. IV TO LAC CLEAN AND INTACT, SL. PT AMBULATES WELL TO BATHROOM FOR TOILETING NEEDS. PT HAS CALL LIGHT WITHIN REACH, BED ALARM ON AND ALL SAFETY MEASURES IN PLACE.
[2022-06-16] MEDS ORDERED: LOPRESSOR 550 MG/TAB PO (09:19)
--- NOTE | 2022-06-16 12:00 | NUR ---
PT SITTING UP IN CHAIR, EATING LUNCH. PT IS ALERT AND ORIENTED, NO C/O PAIN AT THIS TIME. PT HAS CALL LIGHT WITHIN REACH AND ALL SAFETY MEASURES IN PLACE.
--- NOTE | 2022-06-16 15:50 | NUR ---
Discharge instructions given. Patient verbalizes understanding of same. Discharged in stable condition via [facility] with *Other. All belongings sent with pt.
== END 2022-06-16 15:50 | DRG 310 ==
LOC: ED 18:10 → MS2 22:53 → ICU 06-13 16:45 → MS2 06-15 11:34
PROVIDERS: Family Medicine; Nurse Practitioner Family; ADMIT Internal Medicine; ATTEND Internal Medicine
DX: I48.0 Paroxysmal atrial fibrillation (principal); R53.1 Weakness; I10 Essential (primary) hypertension; E11.42 Type 2 diabetes mellitus with diabetic polyneuropathy; I25.10 Atherosclerotic heart disease of native coronary artery without angina pectoris; I47.20 Ventricular tachycardia, unspecified; D64.9 Anemia, unspecified; E78.5 Hyperlipidemia, unspecified; K59.00 Constipation, unspecified; F32.A Depression, unspecified; Z79.4 Long term (current) use of insulin; Z90.49 Acquired absence of other specified parts of digestive tract; Z87.19 Personal history of other diseases of the digestive system; Z20.822 Contact with and (suspected) exposure to COVID-19
CPT/HCPCS: J0282; J1650